=== PATIENT | male | born 1950 | race Caucasian/White ===

== ENCOUNTER 2016-11-16 20:43 | Inpatient (IN) | payer OTHER, MEDICARE ==
[~2016-11-16] VITALS: Ht 175.3 cm; Wt 106.5 kg
[2016-11-16 20:40] VITALS: O2SAT 95
[~2016-11-16 20:43] MED LIST: ALBU17I INH; ASPI81TA82 PO; ATOR80TA PO; BUSP10 PO; FENO54TA PO; HYDR-2768 PO; IBUP800 PO; LISI-360 PO; REME15TA PO; SPIRCAP INH; SYMB80AE INH; VITA100018 PO; ZOLO50TA PO
[2016-11-16 20:46] VITALS: TEMP 98.6
[2016-11-16 20:54] VITALS: BP 181/93; PULSE 110; RESP 22; O2SAT 99
[2016-11-16] MEDS ORDERED: MAGNESIUM SULFATE 1 GM PREMIX 100 ML IV ONE (21:00)
[2016-11-16] MEDS ORDERED: RESP: ALBUTEROL 2.5 MG/IPRATROPIUM 0.5 MG NEB (SCH) INH ONE (21:00)
--- NOTE | 2016-11-16 21:00 | PD ---
HPI Chief Complaint: Respiratory Distress Time Seen by Provider: 20:49 Travel History International Travel<30 days: No Contact w/Intl Traveler<30days: No Traveled to known affect area: No History of Present Illness HPI The patient is a 66 year old male who presents to the [facility] emergency department with a history of shortness of breath that began approximately one hour prior to ambulance services arrival while he was watching television. He reports it began suddenly. He reports that he does have a history of asthma and chronic bronchitis. He tried using his Proventil inhaler without relief. Upon ambulance services arrival the patient was noted to be tachypneic, tripoding, with conversational dyspnea and diaphoresis. The patient's O2 saturation on room air was in the low 80s. The patient was started on an albuterol nebulizer treatment and IV access was obtained. The patient was given Solu-Medrol 125 mg IV. 2 more albuterol nebulizer treatments were administered in route, however the patient continued to have a significant amount of work of breathing O2 saturations in the low 90s. The patient was then given 0.3 mg of subcutaneous epinephrine and quickly his symptoms began to improve. The patient on arrival is able to speak in complete sentences. The patient denies having any chest pain or chest pressure. He reports that he has had a worsening cough over the last few days. He reports that it seems to be productive, however he has difficulty getting the phlegm up. He reports that the phlegm when he does get it up is clear in color. He denies having any fevers. He denies having any lower extremity edema. The patient prior to arrival was noted to be hypertensive with a blood pressure 227/115. The patient reports that he has not been taking his blood pressure medications for the last 2 weeks. He is not exactly sure why he has not been taking his medication. He reports that his primary care physician is Dr. Thomas. The patient reports that he quit smoking over 25 years ago. On review of systems, the patient denies any neck pain, chest pain, abdominal pain, vomiting, diarrhea , urinary symptoms, or neurologic symptoms. [facility] Past Medical History Narrative Medical The patient's past medical history is significant for asthma, chronic bronchitis , COPD, prior history of tobacco use, history of PTSD, history of hypertension, arthritis, acid reflux, hyperlipidemia Arthritis: Yes Asthma: Yes Blood Disorders: No Heart Rhythm Problems: No Cancer: No Cardiovascular Problems: Yes Chemotherapy: Yes Chest Pain: No Congestive Heart Failure: No COPD: Yes Endocrine: No Gastrointestinal Disorders: Yes (GERD) GERD: Yes Genitourinary: No Hypertension: Yes Immune Disorder: No Implanted Vascular Access Dvce: No Musculoskeletal: Yes Neurologic: No Psychiatric: Yes (PTSD) Reproductive: No Respiratory: Yes Past Surgical History Narrative Surgical The patient's past surgical history is significant for an appendectomy, hernia repair, shrapnel removal. Abdominal Surgery: Yes (HERNIA AND SHRAPNEL) Appendectomy: Yes Other Surgery: Yes Social History Alcohol Use: No (OCC) Tobacco Use: No (QUIT 15 YRS AGO) Substance Use: No Allergies-Medications (Allergen,Severity, Reaction): Coded Allergies: Keflex (Verified Allergy, Severe, anaphylaxis, 11/16/16) Reported Meds & Prescriptions Reported Meds & Active Scripts Active Reported Aspirin 81 (Aspirin) 81 Mg Tabdr 81 Mg PO DAILY Atorvastatin (Atorvastatin Calcium) 80 Mg Tab 80 Mg PO HS Hydrochlorothiazide 25 Mg Tab 25 Mg PO DAILY Lisinopril 10 Mg Tab 10 Mg PO DAILY Ventolin Hfa 18 GM Inh (Albuterol Sulfate) 90 Mcg/Act Aer 2 Puff INH Q4H PRN Symbicort Inh (Budesonide/Formoterol Fumarate) 80-4.5 Mcg/Act Aero 2 Puff INH BID Spiriva Handihaler (Tiotropium Inh) 18 Mcg Cap 18 Mcg INH DAILY 1 capsule = 18 mcg Mucinex DM (Dextromethorphan-Guaifenesin) 30-600 Mg Tab 1 Tab PO BID PRN Review of Systems Except as stated in HPI: all other systems reviewed are Neg General / Constitutional: No: Fever Eyes: No: Visual changes HENT: Positive: Congestion, No: Headaches Cardiovascular: Positive: Dyspnea on exertion, No: Chest Pain or Discomfort Respiratory: Positive: Cough, Shortness of Breath, Wheezing Gastrointestinal: No: Nausea, Vomiting, Diarrhea, Abdominal Pain Genitourinary: No: Dysuria Musculoskeletal: No: Pain Skin: No Rash Neurologic: No: Weakness, Focal Abnormalities, Change in Mentation, Slurred Speech, Sensory Disturbance Psychiatric: No: Depression Endocrine: No: Polydipsia Hematologic/Lymphatic: No: Easy Bruising Physical Exam Narrative General: The patient is a well-developed well-nourished male in no acute distress on arrival. Head and Neck exam: Head is normocephalic atraumatic. Eyes: EOMI, pupils are equal round and reactive to light. Nose: Midline septum with pink mucous membranes Mouth: Dentition unremarkable. Moist mucus membranes. Posterior oropharynx is not erythematous. No tonsillar hypertrophy. Uvula midline. Airway patent. Neck: No palpable lymphadenopathy. No nuchal rigidity. No thyromegaly. Cardiovascular: Sinus tachycardia in the low 100s without murmurs, gallops, or rubs. No pulse deficit to the extremities and simultaneous auscultation and palpation of his radial artery. Lungs: Soft posterior expiratory wheezes are audible, good air movement is noted at this time, prolonged expiratory phase of breathing is noted. No tripoding, paroxysmal abdominal breathing, retractions, or conversational dyspnea is noted at this time. Abdomen: Soft and distended related to central obesity, nontender in all 4 quadrants of the abdomen. No guarding, rebound, or rigidity. Normal bowel sounds are audible. No tenderness on palpation of McBurney's point Extremities: No clubbing or cyanosis. The patient has trace pedal edema bilateral lower extremities. 2+ pulses in all 4 extremities. No calf tenderness on palpation. Negative Homans sign. Back: No costovertebral angle tenderness to palpation. Neurologic Exam: Grossly nonfocal. Skin Exam: No rash noted. Intact skin that is warm and dry. Data Data Last Documented VS Vital Signs Date Time Temp Pulse Resp B/P Pulse Ox O2 Delivery O2 Flow Rate FiO2 11/16/16 20:54 110 22 181/93 99 Simple Mask 12 11/16/16 20:46 98.6 Orders Complete Blood Count With Diff (11/16/16 20:50) Comprehensive Metabolic Panel (11/16/16 20:50) B-Type Natriuretic Peptide (11/16/16 20:50) Act Partial Throm Time (Ptt) (11/16/16 20:50) Prothrombin Time / Inr (Pt) (11/16/16 20:50) Magnesium (Mg) (11/16/16 20:50) Ckmb (Isoenzyme) Profile (11/16/16 20:50) Troponin I (11/16/16 20:50) Iv Access Insert/Monitor (11/16/16 20:50) Electrocardiogram (11/16/16 20:50) Ecg Monitoring (11/16/16 20:50) Oximetry (11/16/16 20:50) Oxygen Administration (11/16/16 20:50) Chest, Single Ap (11/16/16 20:50) Sodium Chloride 0.9% Flush (Ns Flush) (11/16/16 21:00) Albuterol-Ipratropium Neb (Duoneb Neb) (11/16/16 21:00) Magnesium Sulfate 1 Gm Premix (Magnesium (11/16/16 21:00) Blood Culture (11/16/16 21:35) Lactic Acid Sepsis Protocol (11/16/16 21:35) Aztreonam Inj (Azactam Inj) (11/16/16 21:37) Levofloxacin 750 Mg Premix Inj (Levaquin (11/16/16 21:37) CKMB (11/16/16 21:05) CKMB% (11/16/16 21:05) Sodium Chlor 0.9% 1000 Ml Inj (Ns 1000 M (11/16/16 23:15) Admit Order (Ed Use Only) (11/16/16 23:12) Labs Laboratory Tests Test 11/16/16 11/16/16 21:05 22:15 White Blood Count 17.9 TH/MM3 Red Blood Count 4.95 MIL/MM3 Hemoglobin 15.4 GM/DL Hematocrit 45.2 % Mean Corpuscular Volume 91.3 FL Mean Corpuscular Hemoglobin 31.1 PG Mean Corpuscular Hemoglobin 34.0 % Concent Red Cell Distribution Width 13.5 % Platelet Count 219 TH/MM3 Mean Platelet Volume 9.9 FL Neutrophils (%) (Auto) 85.0 % Lymphocytes (%) (Auto) 7.3 % Monocytes (%) (Auto) 7.6 % Eosinophils (%) (Auto) 0.0 % Basophils (%) (Auto) 0.1 % Neutrophils # (Auto) 15.3 TH/MM3 Lymphocytes # (Auto) 1.3 TH/MM3 Monocytes # (Auto) 1.4 TH/MM3 Eosinophils # (Auto) 0.0 TH/MM3 Basophils # (Auto) 0.0 TH/MM3 CBC Comment DIFF FINAL Differential Comment Prothrombin Time 10.7 SEC Prothromb Time International 1.0 RATIO Ratio Activated Partial 22.4 SEC Thromboplast Time Sodium Level 140 MEQ/L Potassium Level 3.7 MEQ/L Chloride Level 103 MEQ/L Carbon Dioxide Level 26.3 MEQ/L Anion Gap 11 MEQ/L Blood Urea Nitrogen 19 MG/DL Creatinine 1.09 MG/DL Estimat Glomerular Filtration 67 ML/MIN Rate Random Glucose 108 MG/DL Calcium Level 8.3 MG/DL Magnesium Level 2.4 MG/DL Total Bilirubin 0.6 MG/DL Aspartate Amino Transf 49 U/L (AST/SGOT) Alanine Aminotransferase 52 U/L (ALT/SGPT) Alkaline Phosphatase 103 U/L Total Creatine Kinase 115 U/L Creatine Kinase MB 3.0 NG/ML Troponin I 0.04 NG/ML B-Type Natriuretic Peptide 68 PG/ML Total Protein 7.0 GM/DL Albumin 3.8 GM/DL Lactic Acid Level 3.5 mmol/L [facility] Medical Decision Making Medical Screen Exam Complete: Yes Emergency Medical Condition: Yes Medical Record Reviewed: Yes Interpretation(s) Last Impressions Chest X-Ray 11/16/162049 Signed Impressions: Service Date/Time: Wednesday, November 16, 2016 21:01 - CONCLUSION: No evidence of acute cardiopulmonary disease. Louis Willson MD Differential Diagnosis COPD exacerbation, versus new-onset congestive heart failure, versus acute coronary syndrome, versus asthma exacerbation related to an allergic reaction. Narrative Course During the course of the patients emergency department visit, the patients history, examination, and differential diagnosis were reviewed with the patient. The patient had IV access obtained and blood work sent for analysis. The patient was placed on a line erector apprentice with oximetry and blood pressure monitoring. An EKG was done on arrival. The patient's EKG shows a sinus tachycardia rate of 110, no acute ST segment elevation or depression, T waves are inverted in V1. QRS duration is 84 ms, QTC 387 ms. Patient's O2 saturation on arrival is noted to be 97%. A chest x-ray was ordered. The patient was initially provided a DuoNeb 1, magnesium 1 g IV. The patients laboratory studies were reviewed and remarkable for a white count of 17.9, hemoglobin 15.4, platelets 219 with neutrophils 85, lymphocytes 7.3 , CMP is remarkable for a BUN of 19, glucose 108, calcium 8.3, AST 49, cardiac enzymes within normal limits, BNP is 68, lactic acid 3.5, PT/PTT unremarkable. The patient meets SIRS criteria and technically sepsis criteria due to an infection source of bronchitis/pulmonary infection source, however I suspect that the patient is not truly septic and his lactic acid elevation is related to hypoxia and increased work of breathing. The patient was given normal saline a 1 L IV fluid bolus, antibiotic coverage for a pulmonary source. The patient's Q sofa score is 1. Radiology studies were reviewed and remarkable for a chest x-ray shows no evidence of infiltrate, no acute cardiopulmonary disease. While awaiting a bed, the patient became short of breath again. A repeat examination the patient has no significant wheezing noted. The patient also became dyspneic when he sat up at the bedside to urinate in the urinal. The patient was given a single DuoNeb. The patient will also undergo CTA to rule out PE. CTA was negative for PE. The patients results were discussed with the patient, including the plan of care. I explained that further testing and/ or monitoring is indicated based on the patients history, examination, and/ or laboratory findings. Therefore, I recommended admission for additional evaluation. The patient expressed understanding and was agreeable with this plan. The patient was admitted to the hospital in stable condition and sent to a bed under the care of the [facility] hospitalist service per Sepsis Criteria SIRS Criteria (2 or more): Heart rate over 90, RR > 20 or PaCO2 < 32, WBC > 90532, < 4000 or > 10% bands Sepsis Criteria (SIRS+source): Infect source susp/known Criteria Outcome: Meets SIRS criteria Physician Communication Physician Communication The patient's case was discussed with Dr. Monae who did agree to admit the patient for further evaluation and treatment at this time. Diagnosis Primary Impression: COPD exacerbation Additional Impression: Hypoxemia Admitting Information Admitting Physician Requests: it Kelly Blank MD November 16, 2016 20:59
[2016-11-16] MEDS ORDERED: ATOR1TAB18 PO (21:03)
[2016-11-16] MEDS ORDERED: SPIRCAP INH (21:03)
[2016-11-16] MEDS ORDERED: SYMB80AE INH (21:03)
[2016-11-16] MEDS ORDERED: ASPI-110 PO (21:03)
[2016-11-16] MEDS ORDERED: LISI10TA3 PO (21:03)
[2016-11-16] MEDS ORDERED: VENTAER INH (21:03)
[2016-11-16] MEDS ORDERED: MUCI30TA2 PO (21:03)
[2016-11-16] MEDS ORDERED: HYDR25TA5 PO (21:03)
[2016-11-16] MEDS: SODIUM CHLORIDE 0.9% FLUSH 10 ML FLUSH IVF PRN ×2 (21:13→23:18)
[2016-11-16 21:33] LABS: AUTOMATED NEUTROPHIL # 15.3 TH/MM3 (1.8-7.7); BASOPHIL % 0.1 % (0.0-2.0); HEMATOCRIT 45.2 % (39.0-51.0); HEMO FLAGS DIFF FINAL; LYMPH % 7.3 % (9.0-44.0); LYMPHOCYTE # 1.3 TH/MM3 (1.0-4.8); MEAN CELL VOLUME 91.3 FL (80.0-100.0); MEAN CORPUSCULAR HEMOGLOBIN 31.1 PG (27.0-34.0); MONO % 7.6 % (0.0-8.0); PLATELET COUNT 219 TH/MM3 (150-450); RED BLOOD COUNT 4.95 MIL/MM3 (4.50-5.90); RED CELL DISTRIBUTION WIDTH 13.5 % (11.6-17.2); WHITE BLOOD COUNT 17.9 TH/MM3 (4.0-11.0)
--- NOTE | 2016-11-16 21:34 | RADRPT ---
EXAM DATE/TIME: 11/16/2016 21:01 [place] COMPARISON: CHEST PA & LAT, January 15, 2014, 18:13. INDICATIONS : Short of breath MEDICAL HISTORY : Chronic obstructive pulmonary disease. SURGICAL HISTORY : None. ENCOUNTER: Initial ACUITY: 1 day PAIN SCORE: 0/10 LOCATION: Bilateral chest FINDINGS: A single view of the chest demonstrates the lungs to be symmetrically aerated without evidence of mas s, infiltrate or effusion. The cardiomediastinal contours are unremarkable. Osseous structures are intact. CONCLUSION: No evidence of acute cardiopulmonary disease. Louis Willson MD on November 16, 2016 at 21:32 Board Certified Radiologist. This report was verified electronically.
[2016-11-16] MEDS ORDERED: LEVOFLOXACIN 750 MG PREMIX INJ 150 ML IV STA (21:37)
[2016-11-16] MEDS ORDERED: AZTREONAM INJ 2,000 MG in SODIUM CHLORIDE 0.9% INJ 100 ML IV STA (21:37)
[2016-11-16 21:42] LABS: APTT (PATIENT) 22.4 SEC (24.3-30.1); PROTHROMBIN TIME - PATIENT 10.7 SEC (9.8-11.6)
[2016-11-16 21:53] LABS: ALKALINE PHOSPHATASE 103 U/L (45-117); ALT (GPT) 52 U/L (12-78); ANION GAP 11 MEQ/L (5-15); AST (GOT) 49 U/L (15-37); BICARBONATE 26.3 MEQ/L (21.0-32.0); BLOOD UREA NITROGEN 19 MG/DL (7-18); CHLORIDE 103 MEQ/L (98-107); CREATINE KINASE 115 U/L (39-308); GLOMERULAR FILTRATION RATE 67 ML/MIN (>89); MAGNESIUM 2.4 MG/DL (1.5-2.5); POTASSIUM 3.7 MEQ/L (3.5-5.1); SODIUM (NA) 140 MEQ/L (136-145); TOTAL BILIRUBIN ADULT 0.6 MG/DL (0.2-1.0)
[2016-11-16] MEDS ORDERED: SODIUM CHLOR 0.9% 1000 ML INJ 1,000 ML IV ONE (23:15)
[2016-11-17] VITALS (14 sets, daily range): BP systolic 146–203; BP diastolic 70–101; PULSE 82–120; RESP 18–20; TEMP 97.5–98.4; O2SAT 95–98
[2016-11-17] MEDS ORDERED: NALOXONE HCL 0.4 MG/ML AMP IV PRN
[2016-11-17] MEDS ORDERED: SODIUM CHLORIDE 0.9% FLUSH 10 ML FLUSH IV FLUSH PRN
[2016-11-17] MEDS: methylPREDNISolone SOD SUCC 40 MG/1 ML VIAL IV PUSH SCH ×5 (00:02→23:51)
[2016-11-17] MEDS ORDERED: ENALAPRILAT 1.25 MG/ML VIAL IV PUSH ONE (00:30)
[2016-11-17 00:38] LABS: LACTIC ACID GHOST NOT REPORTABLE
--- NOTE | 2016-11-17 01:17 | HHI.HP ---
[facility] Service [facility] Primary Care Physician Anthony Thomas MD Admission Diagnosis Copd Exacerbation, bronchitis, hypoxemia on RA Diagnoses: (1) COPD exacerbation (2) SIRS (systemic inflammatory response syndrome) (3) Gastroesophageal reflux disease (4) Hypertensive urgency Chief Complaint: Difficulty breathing Travel History International Travel<30 Days: No Contact w/Intl Traveler <30 Da: No Traveled to Known Affected Are: No History of Present Illness Mr. Barton is a 66-year-old male with a history of asthma, chronic bronchitis , PTSD, GERD, hypertension, and arthritis who presented to the emergency room on 11/16/2016 complaining of sudden onset of shortness of breath. Oxygen saturation was noted in the low 80s upon EMS arrival at the patients home. He was given Solu-Medrol and multiple albuterol nebulizer treatments with breathing did not improve until he was given subcutaneous epinephrine 0.3 mg. Blood pressure was found elevated upon arrival in the ED at 181/93 and apparently the patient has not been taking his blood pressure medications for 2 weeks. The patient is seen in the emergency room. He states that he is been being treated by his primary care physician for bronchitis with antibiotics and steroids for a productive cough with clear sputum that has been present for duration of 1 week . He states that he was watching his television with his 2 dogs when he felt like he could not breathe. His symptoms were severe and onset was quite sudden. He had never experienced anything like this before. He denies fever, nausea, vomiting, diarrhea, black or red stools, burning or pain with urination, or syncope. He denies diabetes, CAD, CVA, seizures, thyroid, CA, prostate problems, blood clots in legs or lungs. He states he hasn't been taking antihypertensive medications - reports that he forgets to take them. . Review of Systems Except as stated in HPI: all other systems reviewed are Neg Past Family Social History Past Medical History COPD: asthma and chronic bronchitis Multiple rib fractures from a fall from a ladder in 2013 PTSD GERD Hypertension Arthritis . Past Surgical History Abdominal surgery for shrapnel and hernia Arthroscopic surgery bilateral knees Appendectomy . Reported Medications Reported Meds & Active Scripts Active Reported Aspirin 81 (Aspirin) 81 Mg Tabdr 81 Mg PO DAILY Atorvastatin (Atorvastatin Calcium) 80 Mg Tab 80 Mg PO HS Hydrochlorothiazide 25 Mg Tab 25 Mg PO DAILY Lisinopril 10 Mg Tab 10 Mg PO DAILY Ventolin Hfa 18 GM Inh (Albuterol Sulfate) 90 Mcg/Act Aer 2 Puff INH Q4H PRN Symbicort Inh (Budesonide/Formoterol Fumarate) 80-4.5 Mcg/Act Aero 2 Puff INH BID Spiriva Handihaler (Tiotropium Inh) 18 Mcg Cap 18 Mcg INH DAILY 1 capsule = 18 mcg Mucinex DM (Dextromethorphan-Guaifenesin) 30-600 Mg Tab 1 Tab PO BID PRN . Allergies: Coded Allergies: Keflex (Verified Allergy, Severe, anaphylaxis, 11/16/16) Active Ordered Medications Current Medications Sodium Chloride (NS Flush) 2 ml UNSCH PRN IVF FLUSH AFTER USING IV ACCESS Last administered on 11/16/16 23:18; Start 11/16/16 at 21:00; Stop 11/16/16 at 23:50; Status DC Albuterol/ Ipratropium 1 ampule 1 ampule ONCE ONCE INH Last administered on 20:56; Start 11/16/16 at 21:00; Stop 11/16/16 at 21:01; Status DC Magnesium Sulfate/ Dextrose 100 ml @ 100 mls/hr ONCE ONCE IV Last administered on 11/16/16 21:13; Start 11/16/16 at 21:00; Stop 11/16/16 at 21:59; Status DC Aztreonam 2000 mg/ Sodium Chloride 100 ml @ 200 mls/hr ONCE STAT IV Last administered on 11/16/16 23:04; Start 11/16/16 at 21:37; Stop 11/16/16 at 22:06; Status DC Levofloxacin/ Dextrose 150 ml @ 100 mls/hr ONCE STAT IV Last administered on 11/16/16 22:26; Start 11/16/16 at 21:37; Stop 11/16/16 at 23:06; Status DC Sodium Chloride (NS 1000 ml Inj) 1,000 ml @ 1,000 mls/hr Q1H ONCE IV Last administered on 11/16/16 23:18; Start 11/16/16 at 23:15; Stop 11/17/16 at 00:14; Status DC Sodium Chloride (NS Flush) 2 ml UNSCH PRN IV FLUSH FLUSH AFTER USING IV ACCESS ; Start 11/17/16 at 00:00 Sodium Chloride (NS Flush) 2 ml BID IV FLUSH ; Start 11/17/16 at 09:00 Naloxone HCl (Narcan Inj) 0.4 mg UNSCH PRN IV SEE LABEL COMMENTS; Start at 00:00 Methylprednisolone Sodium Succinate (SoluMEDROL INJ) 40 mg Q6HR IV PUSH Last administered on 11/17/16 00:02; Start 11/17/16 at 00:00 Albuterol/ Ipratropium (Duoneb Neb) 1 ampule Q6HR NEB NEB ; Start 11/17/16 at 04 :00 Albuterol/ Ipratropium (Duoneb Neb) 1 ampule Q2HR NEB PRN NEB wheezing; Start 11/17/16 at 00:00 Pantoprazole Sodium (Protonix) 40 mg DAILY PO ; Start 11/17/16 at 09:00 Enalaprilat (Vasotec Inj) 1.25 mg ONCE ONCE IV PUSH Last administered on 00:53; Start 11/17/16 at 00:30; Stop 11/17/16 at 00:31; Status DC . Family History Mother from pneumonia after hip fracture Father cirrhosis Sister (one of them) from asthma Brother and sister from emphysema - smoked heavily . Social History Tobacco: smoker; quit over 20 years ago Alcohol: denies Illicit Drugs: denies . Physical Exam Vital Signs Vital Signs Date Time Temp Pulse Resp B/P Pulse Ox O2 Delivery O2 Flow Rate FiO2 11/17/16 00:53 88 18 174/77 97 Nasal Cannula 2 11/16/16 20:54 110 22 181/93 99 Simple Mask 12 11/16/16 20:53 99 Simple Mask 12 11/16/16 20:46 98.6 11/16/16 20:40 95 Nasal Cannula 3.00 Physical Exam GENERAL: This is an anxious appearing patient, in no apparent distress. Tremulous. SKIN: No rashes, ecchymoses or lesions. Cool and dry. HEAD: Atraumatic. Normocephalic. EYES: No scleral icterus. No injection or drainage. ENT: Nose without bleeding, purulent drainage. NECK: Trachea midline. No JVD or lymphadenopathy. CARDIOVASCULAR: Regular rate and rhythm without murmurs, gallops, or rubs. RESPIRATORY: Clear to auscultation. Breath sounds equal bilaterally. No wheezes , rales, or rhonchi. GASTROINTESTINAL: Abdomen soft, non-tender, nondistended. No guarding. MUSCULOSKELETAL: Extremities without clubbing, cyanosis, or edema. No calf tenderness. NEUROLOGICAL: Awake and alert. Motor and sensory grossly within normal limits. Normal speech. . Laboratory Laboratory Tests Test 11/16/16 11/16/16 21:05 22:15 White Blood Count 17.9 Red Blood Count 4.95 Hemoglobin 15.4 Hematocrit 45.2 Mean Corpuscular Volume 91.3 Mean Corpuscular Hemoglobin 31.1 Mean Corpuscular Hemoglobin 34.0 Concent Red Cell Distribution Width 13.5 Platelet Count 219 Mean Platelet Volume 9.9 Neutrophils (%) (Auto) 85.0 Lymphocytes (%) (Auto) 7.3 Monocytes (%) (Auto) 7.6 Eosinophils (%) (Auto) 0.0 Basophils (%) (Auto) 0.1 Neutrophils # (Auto) 15.3 Lymphocytes # (Auto) 1.3 Monocytes # (Auto) 1.4 Eosinophils # (Auto) 0.0 Basophils # (Auto) 0.0 CBC Comment DIFF FINAL Differential Comment Prothrombin Time 10.7 Prothromb Time International 1.0 Ratio Activated Partial 22.4 Thromboplast Time Sodium Level 140 Potassium Level 3.7 Chloride Level 103 Carbon Dioxide Level 26.3 Anion Gap 11 Blood Urea Nitrogen 19 Creatinine 1.09 Estimat Glomerular Filtration 67 Rate Random Glucose 108 Calcium Level 8.3 Magnesium Level 2.4 Total Bilirubin 0.6 Aspartate Amino Transf 49 (AST/SGOT) Alanine Aminotransferase 52 (ALT/SGPT) Alkaline Phosphatase 103 Total Creatine Kinase 115 Creatine Kinase MB 3.0 Troponin I 0.04 B-Type Natriuretic Peptide 68 Total Protein 7.0 Albumin 3.8 Lactic Acid Level 3.5 Date/Time Procedure Status Source Growth 11/16/16 22:35 Aerobic Blood Culture Received Blood Peripheral Pending 11/16/16 22:35 Anaerobic Blood Culture Received Blood Peripheral Pending Result Diagram: 11/16/16210411/16/162104 Imaging Last Impressions Chest X-Ray 11/16/162049 Signed Impressions: Service Date/Time: Wednesday, November 16, 2016 21:01 - CONCLUSION: No evidence of acute cardiopulmonary disease. Louis Willson MD . Assessment and Plan Problem List: (1) SIRS (systemic inflammatory response syndrome) ICD Code: R65.10 Status: Acute (2) COPD exacerbation ICD Code: J44.1 Status: Acute (3) Gastroesophageal reflux disease ICD Code: K21.9 Status: Chronic (4) Hypertensive urgency ICD Code: I16.0 Status: Acute Assessment and Plan Mr. Barton is a 66-year-old male with a history of asthma and chronic bronchitis who presented to the emergency room on 11/16/2016 complaining of sudden onset of shortness of breath. He also was noted to have hypertensive urgency in the emergency room and to be noncompliant with home antihypertensive medications. SIRS - failed outpatient treatment for bronchitis - WBC 17.9 with neutrophilia - Lactic acid 3.5 - recheck was 4.0 - will place on lactic acid sepsis protocol - Afebrile; tachycardic with heart rate 110 - Chest x-ray with no evidence of acute cardiopulmonary disease - Await results of blood cultures - Given IV Aztreonam and Levaquin in ER - Will give another NS bolus - 1 liter - Levaquin 750 mg IV q24h - will treat for presumed pneumonia with suspected lag in CXR COPD exacerbation - Supplemental oxygen titrated to maintain oxygen saturation greater than 92% - Solu-Medrol 40 mg IV every 6 hours - Duo nebulizers every 2 hours as needed for wheezing - CT pulmonary angiogram to rule out pulmonary embolism Hypertensive urgency - Hydralazine 10 mg IV every 30 minutes for blood pressure greater than 170/90 - We'll give Ativan 0.5 mg by mouth times one dose as patient appears anxious at the time of visit - Monitor trends in blood pressure and adjust medications accordingly Gastroesophageal reflux disease - Protonix 40 mg by mouth daily DVT prophylaxis - Lovenox 40 mg subq q24h Written by Ashley Mendoza, acting as scribe for Dr. Monae on 11/17/16 at 01:17. .This note was transcribed by scribe [ Ashley Mendoza,]. I, Dr. Chester Monae personally performed the history, physical exam, and medical decision making; and confirmed the accuracy of the information in the transcribed note. Authenticated by Dr. Chester Monae on 11/17/16 at 01:17. Discussed Condition With ER physician and patient . Physician Certification 2 Midnight Certification Type: Admission for Inpatient Services Order for Inpatient Services The services are ordered in accordance with Medicare regulations or non- Medicare payer requirements, as applicable. In the case of services not specified as inpatient-only, they are appropriately provided as inpatient services in accordance with the 2-midnight benchmark. Estimated LOS (days): 3 days is the estimated time the patient will need to remain in the hospital, assuming treatment plan goals are met and no additional complications. Post-Hospital Plan: Not yet determined Ashley Mendoza November 17, 2016 01:17 Chester Monae MD November 17, 2016 05:09
[2016-11-17] MEDS: hydrALAZINE HCL 20 MG/ML VIAL IV PUSH PRN ×5 (01:25→21:39)
[2016-11-17] MEDS ORDERED: LORazepam 0.5 MG TAB PO ONE (01:30)
[2016-11-17] MEDS: RESP: ALBUTEROL 2.5 MG/IPRATROPIUM 0.5 MG NEB (PRN) NEB ×2 (01:49→02:15)
[2016-11-17] MEDS ORDERED: SODIUM CHLOR 0.9% 1000 ML INJ 1,000 ML IV ONE ×2 (02:30→05:15)
[2016-11-17] MEDS ORDERED: IOHEXOL 350 MG/ML 10 ML VIAL (for RAD DIAG) IV ONE (02:39)
--- NOTE | 2016-11-17 02:56 | RADRPT ---
EXAM DATE/TIME: 11/17/2016 02:37 [place] COMPARISON: No previous studies available for comparison. INDICATIONS : Short of breath. IV CONTRAST: 74 cc Omnipaque 350 (iohexol) IV RADIATION DOSE: 23.38 CTDIvol (mGy) MEDICAL HISTORY : Chronic obstructive pulmonary disease. Gastroesophageal reflux disease. Hypertension.Rib fractures. SURGICAL HISTORY : Appendectomy. Hernia repair. ENCOUNTER: Initial ACUITY: 1 day PAIN SCALE: 0/10 LOCATION: Bilateral chest TECHNIQUE: Volumetric scanning of the chest was performed using a pulmonary embolism protocol MIP images were re constructed. Using automated exposure control and adjustment of the mA and/or kV according to patien t size, radiation dose was kept as low as reasonably achievable to obtain optimal diagnostic quality images. FINDINGS: Examination of the pulmonary vasculature demonstrates good filling of the main, lobar and segmental b ranches. There are no filling defects to suggest pulmonary embolism. Multiplanar reconstructions are also unremarkable. There is subsegmental atelectasis in the right base. Examination of the mediastinum demonstrates no a bnormally enlarged lymph nodes by CT criteria. No axillary or hilar abnormalities are identified. Cor onary artery calcifications are present. The visualized upper abdomen demonstrates no abnormality. CONCLUSION: 1. No evidence of pulmonary embolism. Humble Conte MD on November 17, 2016 at 2:52 Board Certified Radiologist. This report was verified electronically.
[2016-11-17] MEDS: RESP: ALBUTEROL 2.5 MG/IPRATROPIUM 0.5 MG NEB (SCH) NEB ×4 (03:29→21:18)
[2016-11-17 04:54] LABS: LACTIC ACID GHOST NOT REPORTABLE
[2016-11-17] MEDS: ENOXAPARIN SODIUM 40 MG/0.4 ML SYRINGE SQ SCH (05:27)
[2016-11-17 05:37] LABS: AUTOMATED NEUTROPHIL # 17.5 TH/MM3 (1.8-7.7); BASOPHIL % 0.2 % (0.0-2.0); HEMATOCRIT 43.7 % (39.0-51.0); LYMPH % 4.1 % (9.0-44.0); LYMPHOCYTE # 0.8 TH/MM3 (1.0-4.8); MEAN CELL VOLUME 91.2 FL (80.0-100.0); MEAN CORPUSCULAR HEMOGLOBIN 31.2 PG (27.0-34.0); MEAN CORPUSCULAR HGB CONC 34.3 % (32.0-36.0); MONO % 2.2 % (0.0-8.0); NEUT % 93.5 % (16.0-70.0); PLATELET COUNT 237 TH/MM3 (150-450); RED CELL DISTRIBUTION WIDTH 13.6 % (11.6-17.2); WHITE BLOOD COUNT 18.8 TH/MM3 (4.0-11.0)
[2016-11-17 05:48] LABS: HEMO FLAGS AUTO DIFF
[2016-11-17 06:04] LABS: BICARBONATE 18.6 MEQ/L (21.0-32.0); POTASSIUM 3.6 MEQ/L (3.5-5.1)
[2016-11-17 07:11] LABS: SCAN/DIFF AUTO DIFF CONFIRMED
[2016-11-17 07:38] LABS: BLOOD GAS BASE EXCESS -3.9 mmol/L (-2-2); BLOOD GAS CARBOXYHEMOGLOBIN 0.9 % (0-4); BLOOD GAS HCO3 20 mmol/L (22-26); BLOOD GAS METHEMOGLOBIN 0.9 % (0-2); BLOOD GAS O2 HGB SATURATION 96 % (90-100); BLOOD GAS OXYGEN CONTENT 19.6 Vol % (12.0-20.0); BLOOD GAS PCO2 33 mmHg (38-42); BLOOD GAS PO2 93 mmHg (61-120); BLOOD GAS TOTAL HGB 14.6 G/DL (12.0-16.0); CRITICAL VALUE NO; DRAW SITE LT RADIAL; LITER FLOW 4 L/M; OXYGEN DEVICE NASAL CANNULA; TEMP CORR TO 98.6
[2016-11-17 07:39] LABS: NUMBER OF ARTERIAL PUNCTURES 1; STAT YES; ULNAR PULSE PRESENT
--- NOTE | 2016-11-17 08:04 | PD.CONS ---
[facility] Service Critical Care Medicine Consult Requested By Dr. Monae Reason for Consult Lactic acidosis Primary Care Physician Anthony Thomas MD History of Present Illness This is a 66yM with history of COPD, asthma, chronic bronchitis who is well- controlled on inhaled corticosteroid who had acute onset of shortness of breath last night and called 911 where EMS found him to be hypoxic with spo2 in the 80s. He was given steroids, nebs, and epinephrine 0.3mg SQ with improvement in his wheezing and respiratory distress. In the emergency department, he had a second episode of distress which again resolved with nebulizer treatments. He states he has never had a COPD exacerbation or any shortness of breath this bad. CT pulmonary angiogram was done to rule out emboli as a cause for his hypoxia and was negative for PE. He did have a lactic acidosis and a leukocytosis on presentation and was given 2 L NS bolus. He was admitted to the hospitalist service for acute bronchitis and concern for sepsis with elevated wbc, lactic acidosis, tachypnea. Overnight, his lactate trended up from 3.5 --> 4 --> 7.2 --> 7.8 despite ivf resuscitation. His BNP on admission was 68 and recheck is 99. ABG demonstrates mild compensated metabolic acidosis 7.4/33/93. Dr. Monae called me and requested that I evaluate the patient for possible worsening shock vs. ischemia given his rising lactate. When I evaluated the patient, he is sitting up in bed, alert, oriented, and pleasant. He again confirms the histories documented in the ER and by the hospitalist service. He denies any abdominal pain. denies diarrhea, bloody stools, dark tarry stools, nausea, vomiting. He denies back pain. He states he can walk up 2 flights of stairs without getting winded. He denies dyspnea on exertion, denies PND, orthopnea. He sleeps flat on his side without any problems. He does state that he turned his air conditioning off and thinks the heat and humidity in his home may have caused his breathing problems. Denies any swelling of his legs or feet. States that other than this, he has been in his usual state of health. denies chest pain or palpitations. Of note, the CT pulmonary angiogram did have enough arterial contrast load and scanned low enough to visualize the celiac and SMA take-off from the aorta, and both are widely patent and fill as far distally as is observed on the CT. Review of Systems Constitutional: DENIES: Diaphoretic episodes, Fatigue, Fever, Chills, Night Sweats Respiratory: COMPLAINS OF: Cough, Wheezing, Sputum production, Shortness of breath, DENIES: Apneas, Hemoptysis Cardiovascular: DENIES: Chest pain, Palpitations, Syncope, Dyspnea on Exertion , PND, Lower Extremity Edema, Orthopnea Gastrointestinal: DENIES: Abdominal pain, Black stools, Bloody stools, Constipation, Diarrhea, Nausea, Vomiting Past Family Social History Allergies: Coded Allergies: Keflex (Verified Allergy, Severe, anaphylaxis, 11/16/16) Past Medical History COPD: asthma and chronic bronchitis Multiple rib fractures from a fall from a ladder in 2013 PTSD GERD Hypertension Arthritis . Past Surgical History Abdominal surgery for shrapnel and hernia Arthroscopic surgery bilateral knees Appendectomy Reported Medications Aspirin 81 (Aspirin) 81 Mg Tabdr 81 Mg PO DAILY Atorvastatin (Atorvastatin Calcium) 80 Mg Tab 80 Mg PO HS Hydrochlorothiazide 25 Mg Tab 25 Mg PO DAILY Lisinopril 10 Mg Tab 10 Mg PO DAILY Ventolin Hfa 18 GM Inh (Albuterol Sulfate) 90 Mcg/Act Aer 2 Puff INH Q4H PRN Symbicort Inh (Budesonide/Formoterol Fumarate) 80-4.5 Mcg/Act Aero 2 Puff INH BID Spiriva Handihaler (Tiotropium Inh) 18 Mcg Cap 18 Mcg INH DAILY 1 capsule = 18 mcg Mucinex DM (Dextromethorphan-Guaifenesin) 30-600 Mg Tab 1 Tab PO BID PRN Active Ordered Medications See MAR Family History Mother from pneumonia after hip fracture Father cirrhosis Sister (one of them) from asthma Brother and sister from emphysema - smoked heavily Social History Tobacco: smoker; quit over 20 years ago Alcohol: denies Illicit Drugs: denies . Physical Exam Vital Signs Vital Signs Date Time Temp Pulse Resp B/P Pulse Ox O2 Delivery O2 Flow Rate FiO2 11/17/16 06:21 101 20 166/90 96 11/17/16 04:00 98.4 113 20 182/83 97 11/17/16 03:31 97 Nasal Cannula 4.00 11/17/16 02:51 120 20 181/81 98 Nasal Cannula 4 11/17/16 01:32 100 20 203/101 98 Nasal Cannula 3 11/17/16 00:53 88 18 174/77 97 Nasal Cannula 2 11/16/16 20:54 110 22 181/93 99 Simple Mask 12 11/16/16 20:53 99 Simple Mask 12 11/16/16 20:46 98.6 11/16/16 20:40 95 Nasal Cannula 3.00 Physical Exam On my examination, patient is alert and oriented, lying in bed, middle-aged appearing, in no acute distress. conversant and pleasant. he has no obvious cyanosis of the lips or oropharynx. his mucous membranes are moist. he is on 2L o2 by [place]. he is unlabored with equal chest rise. he has 2+ distal pulses. he has no peripheral edema. his extremities are warm and well-perfused with good capillary refill his abdomen is obese, soft, nontender, nondistended. no guarding or rebound. he has no gross focal motor or sensory deficits. Laboratory Laboratory Tests Test 11/16/16 11/16/16 11/17/16 11/17/16 21:05 22:15 01:05 02:52 White Blood Count 17.9 Red Blood Count 4.95 Hemoglobin 15.4 Hematocrit 45.2 Mean Corpuscular Volume 91.3 Mean Corpuscular Hemoglobin 31.1 Mean Corpuscular Hemoglobin 34.0 Concent Red Cell Distribution Width 13.5 Platelet Count 219 Mean Platelet Volume 9.9 Neutrophils (%) (Auto) 85.0 Lymphocytes (%) (Auto) 7.3 Monocytes (%) (Auto) 7.6 Eosinophils (%) (Auto) 0.0 Basophils (%) (Auto) 0.1 Neutrophils # (Auto) 15.3 Lymphocytes # (Auto) 1.3 Monocytes # (Auto) 1.4 Eosinophils # (Auto) 0.0 Basophils # (Auto) 0.0 CBC Comment DIFF FINAL Differential Comment Prothrombin Time 10.7 Prothromb Time International 1.0 Ratio Activated Partial 22.4 Thromboplast Time Sodium Level 140 Potassium Level 3.7 Chloride Level 103 Carbon Dioxide Level 26.3 Anion Gap 11 Blood Urea Nitrogen 19 Creatinine 1.09 Estimat Glomerular Filtration 67 Rate Random Glucose 108 Calcium Level 8.3 Magnesium Level 2.4 Total Bilirubin 0.6 Aspartate Amino Transf 49 (AST/SGOT) Alanine Aminotransferase 52 (ALT/SGPT) Alkaline Phosphatase 103 Total Creatine Kinase 115 Creatine Kinase MB 3.0 Troponin I 0.04 B-Type Natriuretic Peptide 68 Total Protein 7.0 Albumin 3.8 Lactic Acid Level 3.5 4.0 7.2 Test 11/17/16 11/17/16 05:30 07:30 White Blood Count 18.8 Red Blood Count 4.80 Hemoglobin 15.0 Hematocrit 43.7 Mean Corpuscular Volume 91.2 Mean Corpuscular Hemoglobin 31.2 Mean Corpuscular Hemoglobin 34.3 Concent Red Cell Distribution Width 13.6 Platelet Count 237 Mean Platelet Volume 9.3 Neutrophils (%) (Auto) 93.5 Lymphocytes (%) (Auto) 4.1 Monocytes (%) (Auto) 2.2 Eosinophils (%) (Auto) 0.0 Basophils (%) (Auto) 0.2 Neutrophils # (Auto) 17.5 Lymphocytes # (Auto) 0.8 Monocytes # (Auto) 0.4 Eosinophils # (Auto) 0.0 Basophils # (Auto) 0.0 CBC Comment AUTO DIFF Differential Comment AUTO DIFF CONFIRMED Sodium Level 138 Potassium Level 3.6 Chloride Level 104 Carbon Dioxide Level 18.6 Anion Gap 15 Blood Urea Nitrogen 16 Creatinine 1.27 Estimat Glomerular Filtration 56 Rate Random Glucose 173 Lactic Acid Level 7.8 Calcium Level 7.9 B-Type Natriuretic Peptide 99 Blood Gas Puncture Site LT RADIAL Blood Gas Patient Temperature 98.6 Blood Gas HCO3 20 Blood Gas Base Excess -3.9 Blood Gas Oxygen Saturation 96 Arterial Blood pH 7.40 Arterial Blood Partial 33 Pressure CO2 Arterial Blood Partial 93 Pressure O2 Arterial Blood Oxygen Content 19.6 Arterial Blood 0.9 Carboxyhemoglobin Arterial Blood Methemoglobin 0.9 Blood Gas Hemoglobin 14.6 Oxygen Delivery Device NASAL CANNULA Blood Gas Liter Flow 4 Date/Time Procedure Status Source Growth 11/16/16 22:35 Aerobic Blood Culture Received Blood Peripheral Pending 11/16/16 22:35 Anaerobic Blood Culture Received Blood Peripheral Pending Result Diagram: 11/17/16 0530 11/17/[address] Angiography 11/17/16220 Signed Impressions: Service Date/Time: Thursday, November 17, 2016 02:37 - CONCLUSION: 1. No evidence of pulmonary embolism. Humble Conte MD Chest X-Ray 11/16/162049 Signed Impressions: Service Date/Time: Wednesday, November 16, 2016 21:01 - CONCLUSION: No evidence of acute cardiopulmonary disease. Louis E. Agles, MD Assessment and Plan Assessment and Plan Assessment: 66yM with history of COPD with acute shortness of breath and likely COPD exacerbation. His course has been complicated by rising lactate levels of unknown significance. Given that he only has a mild compensated metabolic acidosis, this is almost certainly a Type B lactic acidosis and not associated with primary ischemia or poor oxygen delivery. He did receive epinephrine SQ in the field, which can cause a type B lactic acidosis. The half-life of SQ epi is short, and unlikely to last this duration, but could contribute. I also agree that this may be wash-out from his hypoxic event. His CT pulmonary angiogram is reassuring that there is no large filling defect in his celiac or SMA, and given that he has no abdominal pain or diarrhea, mesenteric ischemia would be almost completely ruled out by these findings. His BNP remains low, so cardiogenic shock and heart failure is unlikely as well. I agree with the plan to continue trending lactate to ensure it is clearing. His LFTs are normal , so poor clearance is also unlikely. From a pulmonary standpoint, would recommend checking urine legionella and mycoplasma as these could cause his COPD symptoms and are associated with a higher acuity of patient presentation. Recommendations: 1. Type B Lactic Acidosis -- trend lactates q6h until downtrending. -- as long as patient continues to clinically improve without further symptomatology, unlikely to be clinically significant to his hospital course. I would recommend continuing his current regimen of care and not change this care based on his lactate levels unless he has a clinical change. -- agree with routine 2d echocardiogram to rule out cardiogenic cause. 2. COPD exacerbation -- agree with management as described in the hospitalist care plan. 3. Acute Bronchitis -- would recommend adding legionella urinary antigen and mycoplasma antigen -- continue current management per hospitalist. Disposition: The patient is safe and stable to remain in his current level of monitoring and care. If his clinical status changes, please notify the hospitalist service or news gathering technician service, and we will re-evaluate him for change in level of care based on his clinical presentation. Critical Care medicine will sign-off. Please reconsult as needed. Discussed Condition With Antonio Moon MD November 17, 2016 08:04
[2016-11-17] MEDS: BUDESONIDE-FORMOTEROL 80/4.5 MCG INHALER INH SCH ×2 (08:58→21:31)
[2016-11-17] MEDS: LISINOPRIL 10 MG TAB PO SCH (08:58)
[2016-11-17] MEDS: SODIUM CHLORIDE 0.9% FLUSH 10 ML FLUSH IV FLUSH SCH ×2 (08:58→21:32)
[2016-11-17] MEDS: TIOTROPIUM BROMIDE 18 MCG INH INH SCH (08:58)
[2016-11-17] MEDS: ASPIRIN EC 81 MG TABEC PO SCH (08:59)
[2016-11-17] MEDS: HYDROCHLOROTHIAZIDE 25 MG TAB PO SCH (08:59)
[2016-11-17] MEDS: PANTOPRAZOLE SOD 40 MG DELAYED RELEASE TAB PO SCH (08:59)
--- NOTE | 2016-11-17 09:20 | HHI.PR ---
Subjective Remarks Follow-up COPD exacerbation, lactic acidosis. The patient reports dyspnea, wheeze. No other complaints at this time. Denies abdominal pain, nausea, vomiting. Objective Vitals Vital Signs Date Time Temp Pulse Resp B/P Pulse Ox O2 Delivery O2 Flow Rate FiO2 11/17/16 09:00 Nasal Cannula 4.00 11/17/16 06:21 101 20 166/90 96 11/17/16 04:00 98.4 113 20 182/83 97 11/17/16 03:40 112 11/17/16 03:31 97 Nasal Cannula 4.00 11/17/16 02:51 120 20 181/81 98 Nasal Cannula 4 11/17/16 01:32 100 20 203/101 98 Nasal Cannula 3 11/17/16 00:53 88 18 174/77 97 Nasal Cannula 2 11/16/16 20:54 110 22 181/93 99 Simple Mask 12 11/16/16 20:53 99 Simple Mask 12 11/16/16 20:46 98.6 11/16/16 20:40 95 Nasal Cannula 3.00 I/O 11/16/16 11/16/16 11/16/16 11/17/16 11/17/16 11/17/16 07:00 15:00 23:00 07:00 15:00 23:00 Intake Total 480 ml Output Total 500 ml Balance -20 ml Intake Oral 480 ml Output Urine Total 500 ml # Voids 1 Result Diagram: 11/17/16 0530 11/17/16 [address] Angiography 11/17/16220 Signed Impressions: Service Date/Time: Thursday, November 17, 2016 02:37 - CONCLUSION: 1. No evidence of pulmonary embolism. Humble Conte MD Chest X-Ray 11/16/162049 Signed Impressions: Service Date/Time: Wednesday, November 16, 2016 21:01 - CONCLUSION: No evidence of acute cardiopulmonary disease. Louis Willson MD Objective Remarks General: Obese male in no acute distress. Heart: Regular rate and rhythm. No murmur. Lungs: Diffuse wheeze. Breathing is nonlabored. Abdomen: Soft, nontender, nondistended. Extremities: No lower extremity edema. Psych: Alert and oriented. Procedures None Urinary Catheter: No Vascular Central Line Catheter: No A/P Problem List: (1) SIRS (systemic inflammatory response syndrome) ICD Code: R65.10 Status: Acute (2) COPD exacerbation ICD Code: J44.1 Status: Acute (3) Gastroesophageal reflux disease ICD Code: K21.9 Status: Chronic (4) Hypertensive urgency ICD Code: I16.0 Status: Acute (5) Lactic acidosis ICD Code: E87.2 Status: Acute Assessment and Plan 1. Sepsis: Patient presented with leukocytosis, lactic acidosis, tachycardia. Source is presumed to be respiratory. Continue antibiotics, IV fluids. 2. Lactic acidosis: Serum lactic acid level has increased significantly. Appreciate critical care recommendations. Monitor lactic acid every 6 hours until serum level is trending down. 3. COPD exacerbation: Continue supplemental oxygen. Continue Solu-Medrol, bronchodilators. CT pulmonary angiogram is negative for pulmonary embolus. 4. Hypertensive urgency: Improved. Continue HCTZ, lisinopril. 5. GERD: Continue Protonix. 6. Hyperlipidemia: Continue statin. 7. DVT prophylaxis: Lovenox. Tigre Merchant MD November 17, 2016 09:20
--- NOTE | 2016-11-17 12:00 | EKG ---
Date Performed: 11/16/2016 Time Performed: 20:46:48 PTAGE: 66 years EKG: SINUS TACHYCARDIA ABNORMAL RHYTHM ECG NO PREVIOUS TRACING DOCTOR: Jonatan Mar Interpretating Date/Time 11/17/2016 11:58:10
--- NOTE | 2016-11-17 13:09 | EC ---
Study Study Date:11/17/2016 STUDY CONCLUSIONS SUMMARY - Procedure narrative: Image quality was fair. The study was technically limited due to poor acoustic window availability. - Left ventricle: The cavity size was normal. Systolic function was normal. The estimated ejection fraction was in the range of 60% to 65%. - Aortic valve: Trace regurgitation. If LV function is below 40, please consider prescribing an ACEI or ARB or document rationale for non-use. PROCEDURE DATA STUDY STATUS: Elective. Procedure: Transthoracic echocardiography. Image quality was fair. The study was technically limited due to poor acoustic window availability. Scanning was performed from the parasternal, apical, and subcostal acoustic windows. Study completion: The patient tolerated the procedure well. Transthoracic echocardiography. M-mode, complete 2D, complete spectral Doppler, and color Doppler. Height: Height: 69in. Weight: Weight: 233.5lb. Body mass index: BMI: 34.6kg/m^2. Body surface area: BSA: 2.21m^2. Patient status: Inpatient. CARDIAC ANATOMY LEFT VENTRICLE: The cavity size was normal. Systolic function was normal. The estimated ejection fraction was in the range of 60% to 65%. Images were inadequate for LV wall motion assessment. AORTIC VALVE: The valve appears to be grossly normal. Doppler: There was no stenosis. Trace regurgitation. Valve area: 2.87cm^2 (Vmax). Indexed valve area: 1.3cm^2/m^2 (Vmax). MITRAL VALVE: The valve appears to be grossly normal. Doppler: There was no evidence for stenosis. Trace regurgitation. Peak gradient: 6mm Hg (D). LEFT ATRIUM: The atrium was normal in size. RIGHT VENTRICLE: The cavity size was normal. Systolic function was normal. PULMONIC VALVE: Not visualized. TRICUSPID VALVE: Not well visualized. Doppler: There was no evidence for stenosis. PERICARDIUM: There was no pericardial effusion. Patient weight: 233.5lb _Ejection fraction:_ 65-75% _Fractional shortening:_ 32% up to 5Kg 5-11.5Kg 11.6-22.9Kg 23-45Kg 45-57Kg Aortic Root 7-13 <17 13-22 17-27 17-27 LA diam 6-13 <23 24-38 33-47 37-40 RVID 10-17 7-15 7-15 7-18 8-17 LVIDd 12-22 <32 24-38 33-47 37-40 LVPW 2-4 3-6 5-7 6-8 7-8 IVS 2-4 3-6 5-7 6-8 7-8 BASIC MEASUREMENTS ADULT NORMAL Left ventricle LV internal dimension, ED, chordal *29.8 mm 43-52 level, PLAX LV internal dimension, ES, chordal *20.3 mm 23-38 level, PLAX Fractional shortening, chordal level, 32 % >29 PLAX LV posterior wall thickness, ED 9.33 mm IVS/LVPW ratio, ED 1.17 <1.3 Ventricular septum Septal thickness, ED 10.9 mm Aortic valve Leaflet separation 19 mm 15-26 Right ventricle RV internal dimension, ED, PLAX *18.3 mm 19-38 BASIC MEASUREMENTS ADULT NORMAL Aortic valve Leaflet separation 19 mm 15-26 Aorta Root diameter, ED 24 mm 20-37 Left atrium Anterior-posterior dimension, ES 34 mm 19-40 Anterior-posterior dimension index, ES 1.54 cm/m^2 <2.2 LA/aortic root ratio 1.42 DOPPLER MEASUREMENTS ADULT NORMAL Aortic valve Peak velocity, S 153 cm/s Valve area, Vmax 2.87 cm^2 Valve area index, Vmax 1.3 cm^2/m^2 Regurgitant velocity, ED 350 cm/s Regurgitant deceleration 1140 cm/s^2 Regurgitant pressure half-time 902 ms Regurgitant gradient, ED 49 mm Hg Mitral valve Peak E-wave velocity 122 cm/s Peak A-wave velocity 117 cm/s Deceleration time 173 ms 150-230 Peak gradient, D 6 mm Hg Peak E/A ratio 1 Pulmonic valve Peak velocity, S 118 cm/s LEGEND: Mean values are shown as u=mean value. Asterisk (*) pimentel values outside specified normal range. Prepared and signed by Raymundo Flood [id number]
[2016-11-17] MEDS: LEVOFLOXACIN 750 MG PREMIX INJ 150 ML IV SCH (21:31)
[2016-11-17] MEDS: ATORVASTATIN 80 MG TAB PO SCH (21:32)
[2016-11-18] VITALS (10 sets, daily range): BP systolic 149–166; BP diastolic 67–82; PULSE 74–95; RESP 18–22; TEMP 97.4–98.3; O2SAT 94–97
[2016-11-18] MEDS: RESP: ALBUTEROL 2.5 MG/IPRATROPIUM 0.5 MG NEB (SCH) NEB ×4 (03:30→21:14)
[2016-11-18] MEDS: ENOXAPARIN SODIUM 40 MG/0.4 ML SYRINGE SQ SCH (05:24)
[2016-11-18] MEDS: methylPREDNISolone SOD SUCC 40 MG/1 ML VIAL IV PUSH SCH ×4 (05:24→23:32)
[2016-11-18 07:42] LABS: AUTOMATED NEUTROPHIL # 15.7 TH/MM3 (1.8-7.7); BASOPHIL % 0.1 % (0.0-2.0); HEMATOCRIT 41.8 % (39.0-51.0); HEMO FLAGS DIFF FINAL; LYMPH % 4.1 % (9.0-44.0); LYMPHOCYTE # 0.7 TH/MM3 (1.0-4.8); MEAN CELL VOLUME 91.2 FL (80.0-100.0); MEAN CORPUSCULAR HEMOGLOBIN 30.8 PG (27.0-34.0); MEAN CORPUSCULAR HGB CONC 33.8 % (32.0-36.0); MONO % 3.1 % (0.0-8.0); NEUT % 92.7 % (16.0-70.0); PLATELET COUNT 201 TH/MM3 (150-450); RED BLOOD COUNT 4.58 MIL/MM3 (4.50-5.90); RED CELL DISTRIBUTION WIDTH 13.5 % (11.6-17.2); WHITE BLOOD COUNT 16.9 TH/MM3 (4.0-11.0)
[2016-11-18 08:02] LABS: POTASSIUM 3.3 MEQ/L (3.5-5.1)
[2016-11-18] MEDS: BUDESONIDE-FORMOTEROL 80/4.5 MCG INHALER INH SCH ×2 (08:48→21:56)
[2016-11-18] MEDS: TIOTROPIUM BROMIDE 18 MCG INH INH SCH (08:48)
[2016-11-18] MEDS: ASPIRIN EC 81 MG TABEC PO SCH (08:50)
[2016-11-18] MEDS: LISINOPRIL 10 MG TAB PO SCH (08:50)
[2016-11-18] MEDS: HYDROCHLOROTHIAZIDE 25 MG TAB PO SCH (08:50)
[2016-11-18] MEDS: PANTOPRAZOLE SOD 40 MG DELAYED RELEASE TAB PO SCH (08:50)
[2016-11-18] MEDS: SODIUM CHLORIDE 0.9% FLUSH 10 ML FLUSH IV FLUSH SCH ×2 (08:51→21:56)
[2016-11-18] MEDS ORDERED: POTASSIUM CHLORIDE 20 MEQ CONTROLLED RELEASE TAB PO ONE (12:45)
--- NOTE | 2016-11-18 13:25 | HHI.PR ---
Subjective Remarks Follow-up COPD exacerbation, lactic acidosis. Patient states "I feel great". Denies dyspnea, chest pain. Still requiring oxygen, 4 L per nasal cannula. Objective Vitals Vital Signs Date Time Temp Pulse Resp B/P Pulse Ox O2 Delivery O2 Flow Rate FiO2 11/18/16 12:00 98.3 90 20 150/67 96 11/18/16 09:07 97 Nasal Cannula 4.00 11/18/16 08:00 97.4 82 20 166/75 95 11/18/16 08:00 96 Nasal Cannula 4.00 11/18/16 04:00 97.9 88 20 160/72 95 11/18/16 02:32 92 11/18/16 00:00 98.0 84 22 160/82 97 11/17/16 21:30 Nasal Cannula 4.00 11/17/16 20:00 97.6 92 20 176/79 95 11/17/16 16:07 97.5 82 18 159/70 95 11/17/16 15:31 97 Nasal Cannula 4.00 I/O 11/17/16 11/17/16 11/17/16 11/18/16 11/18/16 11/18/16 07:00 15:00 23:00 07:00 15:00 23:00 Intake Total 480 ml 384 ml 240 ml 240 ml Output Total 500 ml Balance -20 ml 384 ml 240 ml 240 ml Intake Oral 480 ml 380 ml 240 ml 240 ml IV Total 4 ml Output Urine Total 500 ml # Voids 1 5 1 2 # Bowel Movements 1 0 0 Result Diagram: 11/18/16 0610 11/18/16 [address] Angiography 11/17/16220 Signed Impressions: Service Date/Time: Thursday, November 17, 2016 02:37 - CONCLUSION: 1. No evidence of pulmonary embolism. Humble Conte MD Chest X-Ray 11/16/162049 Signed Impressions: Service Date/Time: Wednesday, November 16, 2016 21:01 - CONCLUSION: No evidence of acute cardiopulmonary disease. Louis Willson MD Objective Remarks General: Obese male in no acute distress. Heart: Regular rate and rhythm. No murmur. Lungs: Scattered wheeze. Breathing is nonlabored. Abdomen: Soft, nontender, nondistended. Extremities: No lower extremity edema. Psych: Alert and oriented. Procedures None Urinary Catheter: No Vascular Central Line Catheter: No A/P Problem List: (1) SIRS (systemic inflammatory response syndrome) ICD Code: R65.10 Status: Acute (2) COPD exacerbation ICD Code: J44.1 Status: Acute (3) Gastroesophageal reflux disease ICD Code: K21.9 Status: Chronic (4) Hypertensive urgency ICD Code: I16.0 Status: Acute (5) Lactic acidosis ICD Code: E87.2 Status: Acute Assessment and Plan 1. Sepsis: Patient presented with leukocytosis, lactic acidosis, tachycardia. Source is presumed to be respiratory. Continue antibiotics. 2. Lactic acidosis: Serum lactic acid level is trending down. 3. COPD exacerbation: Continue supplemental oxygen. Continue Solu-Medrol, bronchodilators. CT pulmonary angiogram is negative for pulmonary embolus. Will attempt to wean oxygen. Still requiring oxygen, will request home oxygen walk test. 4. Hypertensive urgency: Improved. Continue HCTZ, lisinopril. 5. GERD: Continue Protonix. 6. Hyperlipidemia: Continue statin. 7. DVT prophylaxis: Lovenox. Discharge Planning Possible discharge home tomorrow pending include improvement. Tigre Merchant MD November 18, 2016 13:25
[2016-11-18] MEDS: LEVOFLOXACIN 750 MG PREMIX INJ 150 ML IV SCH (21:56)
[2016-11-18] MEDS: ATORVASTATIN 80 MG TAB PO SCH (21:56)
[2016-11-19] VITALS: BP 148/78; PULSE 82; RESP 20; TEMP 97.7; O2SAT 94
[2016-11-19 04:00] VITALS: BP 144/80; PULSE 76; RESP 18; TEMP 97.6; O2SAT 92
[2016-11-19] MEDS: RESP: ALBUTEROL 2.5 MG/IPRATROPIUM 0.5 MG NEB (SCH) NEB ×3 (04:58→15:24)
[2016-11-19 05:01] VITALS: O2SAT 91
[2016-11-19] MEDS: ENOXAPARIN SODIUM 40 MG/0.4 ML SYRINGE SQ SCH (05:14)
[2016-11-19] MEDS: methylPREDNISolone SOD SUCC 40 MG/1 ML VIAL IV PUSH SCH ×2 (05:14→12:00)
[2016-11-19 06:53] LABS: BASOPHIL % 0.1 % (0.0-2.0); LYMPH % 4.3 % (9.0-44.0); LYMPHOCYTE # 0.7 TH/MM3 (1.0-4.8); MEAN CELL VOLUME 90.5 FL (80.0-100.0); MEAN CORPUSCULAR HEMOGLOBIN 31.6 PG (27.0-34.0); MEAN CORPUSCULAR HGB CONC 34.9 % (32.0-36.0); NEUT % 92.6 % (16.0-70.0); PLATELET COUNT 203 TH/MM3 (150-450); RED BLOOD COUNT 4.75 MIL/MM3 (4.50-5.90); RED CELL DISTRIBUTION WIDTH 13.3 % (11.6-17.2); WHITE BLOOD COUNT 16.2 TH/MM3 (4.0-11.0)
[2016-11-19 07:06] LABS: BICARBONATE 32.4 MEQ/L (21.0-32.0); POTASSIUM 3.1 MEQ/L (3.5-5.1)
[2016-11-19 07:14] LABS: HEMO FLAGS AUTO DIFF
[2016-11-19] MEDS ORDERED: POTASSIUM CHLORIDE 20 MEQ CONTROLLED RELEASE TAB PO ONE (07:30)
[2016-11-19 08:00] VITALS: BP 162/80; PULSE 80; RESP 18; TEMP 97.8; O2SAT 93
[2016-11-19] MEDS: PANTOPRAZOLE SOD 40 MG DELAYED RELEASE TAB PO SCH (08:55)
[2016-11-19] MEDS: LISINOPRIL 10 MG TAB PO SCH (08:56)
[2016-11-19] MEDS: HYDROCHLOROTHIAZIDE 25 MG TAB PO SCH (08:56)
[2016-11-19] MEDS: TIOTROPIUM BROMIDE 18 MCG INH INH SCH (08:59)
[2016-11-19] MEDS: BUDESONIDE-FORMOTEROL 80/4.5 MCG INHALER INH SCH (08:59)
[2016-11-19] MEDS: SODIUM CHLORIDE 0.9% FLUSH 10 ML FLUSH IV FLUSH SCH (09:00)
[2016-11-19] MEDS: ASPIRIN EC 81 MG TABEC PO SCH (09:00)
[2016-11-19 09:55] LABS: SCAN/DIFF AUTO DIFF CONFIRMED
[2016-11-19 10:17] VITALS: O2SAT 92
--- NOTE | 2016-11-19 11:07 | HHI.PR ---
Subjective Remarks Follow-up COPD exacerbation. Patient has been off oxygen all morning, including while ambulating. Oxygen saturations have remained greater than 90%. He denies dyspnea, chest pain. He wants to go home today. Objective Vitals Vital Signs Date Time Temp Pulse Resp B/P Pulse Ox O2 Delivery O2 Flow Rate FiO2 11/19/16 10:17 92 11/19/16 08:00 97.8 80 18 162/80 93 11/19/16 05:01 91 21 11/19/16 04:00 97.6 76 18 144/80 92 11/19/16 00:00 97.7 82 20 148/78 94 11/18/16 21:14 97 21 11/18/16 20:30 Nasal Cannula 2.00 11/18/16 20:00 97.7 82 18 94 11/18/16 20:00 150/82 Automatic Cuff 11/18/16 16:00 97.4 95 20 149/67 95 11/18/16 12:00 98.3 90 20 150/67 96 I/O 11/18/16 11/18/16 11/18/16 11/19/16 11/19/16 11/19/16 07:00 15:00 23:00 07:00 15:00 23:00 Intake Total 240 ml 840 ml 240 ml 240 ml Balance 240 ml 840 ml 240 ml 240 ml Intake Oral 240 ml 840 ml 240 ml 240 ml # Voids 2 3 1 3 # Bowel Movements 0 1 1 0 Result Diagram: 11/19/16 0615 11/19/16 [address] Angiography 11/17/161 Signed Impressions: Service Date/Time: Thursday, November 17, 2016 02:37 - CONCLUSION: 1. No evidence of pulmonary embolism. Humble Conte MD Chest X-Ray 11/16/162049 Signed Impressions: Service Date/Time: Wednesday, November 16, 2016 21:01 - CONCLUSION: No evidence of acute cardiopulmonary disease. Louis Willson MD Objective Remarks General: Obese male in no acute distress. Heart: Regular rate and rhythm. No murmur. Lungs: Mild scattered wheeze. Breathing is nonlabored. Abdomen: Soft, nontender, nondistended. Extremities: No lower extremity edema. Psych: Alert and oriented. Procedures None Urinary Catheter: No Vascular Central Line Catheter: No A/P Problem List: (1) SIRS (systemic inflammatory response syndrome) ICD Code: R65.10 Status: Acute (2) COPD exacerbation ICD Code: J44.1 Status: Acute (3) Gastroesophageal reflux disease ICD Code: K21.9 Status: Chronic (4) Hypertensive urgency ICD Code: I16.0 Status: Acute (5) Lactic acidosis ICD Code: E87.2 Status: Acute Assessment and Plan 1. Sepsis: Patient presented with leukocytosis, lactic acidosis, tachycardia. Source is presumed to be respiratory. Continue antibiotics. 2. Lactic acidosis: Serum lactic acid level is trending down. 3. COPD exacerbation: Continue supplemental oxygen. Continue Solu-Medrol, bronchodilators. CT pulmonary angiogram is negative for pulmonary embolus. Patient has been stable on room air this morning. Will check respiratory home oxygen walk test to determine need for oxygen at discharge. 4. Hypertensive urgency: Improved. Continue HCTZ, lisinopril. 5. GERD: Continue Protonix. 6. Hyperlipidemia: Continue statin. 7. DVT prophylaxis: Lovenox. Discharge Planning Plan for discharge home today after completion of respiratory home oxygen walk test. Tigre Merchant MD November 19, 2016 11:07
[2016-11-19] MEDS ORDERED: LEVA750T PO (11:10)
[2016-11-19] MEDS ORDERED: PRED5PAK PO (11:10)
--- NOTE | 2016-11-19 11:11 | HHI.DCPOC ---
Discharge Care Plan Diagnosis: (1) COPD exacerbation (2) Lactic acidosis Goals to Promote Your Health * To prevent worsening of your condition and complications * To maintain your health at the optimal level Directions to Meet Your Goals Take your medications as prescribed Follow your dietary instruction Follow activity as directed Keep your appointments as scheduled Take your immunizations and boosters as scheduled If your symptoms worsen call your PCP, if no PCP go to Urgent Care Center or Emergency Room Smoking is Dangerous to Your Health. Avoid second hand smoke Call the 24-hour hour crisis hotline for domestic abuse at Tigre Merchant MD November 19, 2016 11:11
[2016-11-19] MEDS ORDERED: OXYGENTANK NAS.CANULA (13:13)
[2016-11-19 15:24] VITALS: O2SAT 97
--- NOTE | 2016-11-23 14:33 | HHI.DS ---
Discharge Summary Admission Date November 16, 2016 at 23:14 Discharge Date: November 19, 2016 Admitting Diagnosis Copd Exacerbation, bronchitis, hypoxemia on RA (1) SIRS (systemic inflammatory response syndrome) ICD Code: R65.10 (2) COPD exacerbation ICD Code: J44.1 (3) Gastroesophageal reflux disease ICD Code: K21.9 (4) Hypertensive urgency ICD Code: I16.0 (5) Lactic acidosis ICD Code: E87.2 Procedures None Brief History - From Admission Mr. Barton is a 66-year-old male with a history of asthma, chronic bronchitis , PTSD, GERD, hypertension, and arthritis who presented to the emergency room on 11/16/2016 complaining of sudden onset of shortness of breath. Oxygen saturation was noted in the low 80s upon EMS arrival at the patients home. He was given Solu-Medrol and multiple albuterol nebulizer treatments with breathing did not improve until he was given subcutaneous epinephrine 0.3 mg. Blood pressure was found elevated upon arrival in the ED at 181/93 and apparently the patient has not been taking his blood pressure medications for 2 weeks. The patient is seen in the emergency room. He states that he is been being treated by his primary care physician for bronchitis with antibiotics and steroids for a productive cough with clear sputum that has been present for duration of 1 week . He states that he was watching his television with his 2 dogs when he felt like he could not breathe. His symptoms were severe and onset was quite sudden. He had never experienced anything like this before. He denies fever, nausea, vomiting, diarrhea, black or red stools, burning or pain with urination, or syncope. He denies diabetes, CAD, CVA, seizures, thyroid, CA, prostate problems, blood clots in legs or lungs. He states he hasn't been taking antihypertensive medications - reports that he forgets to take them. . CBC/BMP: 11/19/1615 11/19/[address] Angiography 11/17/16 0221 Signed Impressions: Service Date/Time: Thursday, November 17, 2016 02:37 - CONCLUSION: 1. No evidence of pulmonary embolism. Humble Conte MD Chest X-Ray 11/16/162049 Signed Impressions: Service Date/Time: Wednesday, November 16, 2016 21:01 - CONCLUSION: No evidence of acute cardiopulmonary disease. Louis Willson MD PE at Discharge General: Obese male in no acute distress. Heart: Regular rate and rhythm. No murmur. Lungs: Mild scattered wheeze. Breathing is nonlabored. Abdomen: Soft, nontender, nondistended. Extremities: No lower extremity edema. Psych: Alert and oriented. Hospital Course The patient was admitted for treatment of COPD exacerbation, lactic acidosis. Serum lactic acid level was repeated and trended down. He was continued on IV fluids, steroids, and antibiotics. The patient's respiratory status improved throughout the hospitalization. Home oxygen walk test was completed and the patient's room air oxygen saturation was 87%. Arrangements were made by case management for the patient to have home oxygen. He was felt to be stable for discharge home Pt Condition on Discharge: Stable Discharge Disposition: Discharge Home Discharge Time: > 30 minutes Discharge Instructions DIET: Follow Instructions for: Heart Healthy Diet Activities you can perform: Regular-No Restrictions Follow up Referrals: PCP Follow-up - 1 Week Pulmonology New Medications: Levofloxacin (Levaquin) 750 Mg Tab 750 MG PO DAILY Infection #3 Ref 0 TAB Oxygen tank (Oxygen tank) 1 Ea Tank 2 LITER ALDEN.CANULA CONTINUOUS Oxygen Concentrator Portable Gaseous 2 L/min via Nasal Cannula Continuous For 99 months HYPOXEMIA PREVENTION #1 CYLINDER Prednisone (21) 5 mg tab Dose Pack (Prednisone (21) 5 mg tab Dose Pack) 5 Mg Dspk 5 MG PO DIRECTED Inflammation #1 Ref 0 DSPK Continued Medications: Albuterol 18 GM Inh (Ventolin Hfa 18 GM Inh) 90 Mcg/Act Aer 2 PUFF INH Q4H PRN SHORTNESS OF BREATH #1 Ref [address] (Aspirin 81) 81 Mg Tabdr 81 MG PO DAILY Ref 0 TAB Atorvastatin (Atorvastatin) 80 Mg Tab 80 MG PO HS Cholesterol Management #30 Ref 0 TAB Budesonide-Formoterol Inh (Symbicort Inh) 80-4.5 Mcg/Act Aero 2 PUFF INH BID Asthma Management #1 Ref 0 INHALER Dextromethorphan-Guaifenesin (Mucinex DM) 30-600 Mg Tab 1 TAB PO BID PRN CHEST CONGESTION AND/OR COUGH Ref 0 TAB Hydrochlorothiazide (Hydrochlorothiazide) 25 Mg Tab 25 MG PO DAILY #30 Ref 0 TAB Lisinopril (Lisinopril) 10 Mg Tab 10 MG PO DAILY #30 Ref 0 TAB Tiotropium Inh (Spiriva Handihaler) 18 Mcg Cap 18 MCG INH DAILY 1 capsule = 18 mcg COPD #30 Ref 0 CAP Tigre Merchant MD November 23, 2016 14:33
== END 2016-11-19 18:01 | disposition home or self-care (01) | DRG 872 ==
LOC: NEPE 20:43 → NEDA 23:14 → N04B 11-17 03:06
PROVIDERS: ADMIT Family Medicine; ATTEND Family Medicine
DX: A41.9 Sepsis, unspecified organism (principal); E87.2 Acidosis; J44.0 Chronic obstructive pulmonary disease with (acute) lower respiratory infection; J44.1 Chronic obstructive pulmonary disease with (acute) exacerbation; K21.9 Gastro-esophageal reflux disease without esophagitis; I16.0 Hypertensive urgency; F43.10 Post-traumatic stress disorder, unspecified; I10 Essential (primary) hypertension; J20.9 Acute bronchitis, unspecified; E78.5 Hyperlipidemia, unspecified; Z87.891 Personal history of nicotine dependence; Z91.14 Patient's other noncompliance with medication regimen
CPT/HCPCS: 36600; 71010; 71275; 80048; 80053; 82550; 82552; 82805; 83605; 83735; 83880; 84484; 85025; 85610; 85730; 86738; 87040; 93005; 93306; 94620; 94640; 94664; 96365; 96367; 96375; J0360; J1650; J1956; J2920; J3475; J7030; Q9967

== ENCOUNTER 2017-02-07 11:44 | Inpatient (IN) | payer OTHER, MEDICARE ==
[~2017-02-07] VITALS: Ht 182.9 cm; Wt 104.6 kg
[2017-02-07] VITALS (11 sets, daily range): BP systolic 144–179; BP diastolic 70–85; PULSE 90–109; RESP 19–41; TEMP 96–98; O2SAT 88–97
[~2017-02-07 11:44] MED LIST changes: -ALBU17I INH; +ASPI-110 PO; -ASPI81TA82 PO; +ATOR1TAB18 PO; -ATOR80TA PO; -BUSP10 PO; -FENO54TA PO; -HYDR-2768 PO; +HYDR25TA5 PO; -IBUP800 PO; +LEVA750T PO; -LISI-360 PO; +LISI10TA3 PO; +MUCI30TA2 PO; +OXYGENTANK NAS.CANULA; +PRED5PAK PO; -REME15TA PO; +VENTAER INH; -VITA100018 PO; -ZOLO50TA PO
[2017-02-07] MEDS ORDERED: methylPREDNISolone SOD SUCC 125 MG/2 ML VIAL IVP ONE (12:00)
[2017-02-07 12:23] LABS: AUTOMATED NEUTROPHIL # 10.1 TH/MM3 (1.8-7.7); BASOPHIL # 0.1 TH/MM3 (0-0.2); BASOPHIL % 0.4 % (0.0-2.0); EOSINOPHIL % 0.3 % (0.0-4.0); HEMATOCRIT 44.5 % (39.0-51.0); HEMO FLAGS DIFF FINAL; LYMPH % 8.9 % (9.0-44.0); LYMPHOCYTE # 1.1 TH/MM3 (1.0-4.8); MEAN CORPUSCULAR HGB CONC 34.4 % (32.0-36.0); MONO % 9.9 % (0.0-8.0); NEUT % 80.5 % (16.0-70.0); PLATELET COUNT 203 TH/MM3 (150-450); RED BLOOD COUNT 4.94 MIL/MM3 (4.50-5.90); RED CELL DISTRIBUTION WIDTH 12.8 % (11.6-17.2); WHITE BLOOD COUNT 12.6 TH/MM3 (4.0-11.0)
[2017-02-07 12:36] LABS: BICARBONATE 29.1 MEQ/L (21.0-32.0); POTASSIUM 3.6 MEQ/L (3.5-5.1)
--- NOTE | 2017-02-07 12:36 | RADRPT ---
EXAM DATE/TIME: 02/07/2017 11:58 [facility] COMPARISON: CT PULMONARY ANGIOGRAM, November 17, 2016, 2:37. CT THORAX W CONTRAST, January 15, 2014, 20:10. CHEST PA & LAT, January 15, 2014, 18:13. CHEST SINGLE AP, November 16, 2016, 21:01. INDICATIONS : Short of breath and wheezing. MEDICAL HISTORY : Chronic obstructive pulmonary disease. SURGICAL HISTORY : None. ENCOUNTER: Initial ACUITY: 3 days PAIN SCORE: 0/10 LOCATION: Bilateral chest FINDINGS: The lungs are clear without infiltrate, nodule, or mass. There is no appreciable pleural effusion fo r technique. Heart and mediastinum are unremarkable. Subcentimeter density is present overlapping th e right first rib in the bony structures not significantly changed. CONCLUSION: No acute cardiopulmonary disease. Concepcion Boo MD on February 07, 2017 at 12:32 Board Certified Radiologist. This report was verified electronically.
[2017-02-07] MEDS ORDERED: ZITHTAB PO (12:45)
[2017-02-07] MEDS ORDERED: MEDR4PAK PO (12:45)
[2017-02-07] MEDS: RESP: ALBUTEROL 2.5 MG/IPRATROPIUM 0.5 MG NEB (SCH) INH (12:51)
--- NOTE | 2017-02-07 13:02 | PD ---
HPI Chief Complaint: Respiratory Symptoms Time Seen by Provider: 12:58 Travel History International Travel<30 days: No Contact w/Intl Traveler<30days: No Traveled to known affect area: No History of Present Illness HPI 66-year-old male that presents to the ED for evaluation of shortness of breath. Patient comes here by ambulance for evaluation of this. Patient states that he's had cold-like symptoms for the past week. Per patient his was recently diagnosed with the flu but he tells me that she was put on azithromycin as well as prednisone. He was given the same. He states that he uses inhalers and nebulizers at home with minimal relief. He does use oxygen at home when needed. He has a history of COPD. Per patient this feels similar to his COPD. No chest pain. Shortness of breath with exertion as well as with sitting. Per patient the symptoms started getting worse yesterday when he was not able to get his shortness of breath under control. Per patient he uses inhalers as well as nebulizers with minimal relief. He tells me he almost done with azithromycin. He states that he has productive cough. No history of heart problems. Takes a blood thinner but does not know why. PFSH Past Medical History Arthritis: Yes Asthma: Yes Blood Disorders: No Anxiety: Yes Depression: Yes Heart Rhythm Problems: No Cancer: No Cardiovascular Problems: Yes High Cholesterol: Yes Chemotherapy: Yes Chest Pain: No Congestive Heart Failure: No COPD: Yes Endocrine: No Gastrointestinal Disorders: Yes (GERD) GERD: Yes Genitourinary: No Hypertension: Yes Immune Disorder: No Implanted Vascular Access Dvce: No Musculoskeletal: Yes Neurologic: No Psychiatric: Yes (PTSD) Reproductive: No Respiratory: Yes Immunizations Current: Yes (PV23) Past Surgical History Abdominal Surgery: Yes (HERNIA AND SHRAPNEL) Appendectomy: Yes Other Surgery: Yes Social History Alcohol Use: No Tobacco Use: No Substance Use: No Allergies-Medications (Allergen,Severity, Reaction): Coded Allergies: Keflex (Verified Allergy, Severe, anaphylaxis, 02/07/17) Reported Meds & Prescriptions Reported Meds & Active Scripts Active Oxygen tank (Oxygen) 1 Ea Tank 2 Liter ALDEN.CANULA CONTINUOUS Oxygen Concentrator Portable Gaseous 2 L/min via Nasal Cannula Continuous For 99 months Reported Medrol Dosepak (Methylprednisolone) 4 Mg Dspk 4 Mg PO DIRECTED Per Pharmacist direction Zithromax Z-Wolfgang (Azithromycin) 250 Mg Dspk 250 Mg PO DIRECTED 500 MG (2 tabs) day 1, then 1 tab days 2-5. Aspirin 81 (Aspirin) 81 Mg Tabdr 81 Mg PO DAILY Atorvastatin (Atorvastatin Calcium) 80 Mg Tab 80 Mg PO HS Hydrochlorothiazide 25 Mg Tab 25 Mg PO DAILY Lisinopril 10 Mg Tab 10 Mg PO DAILY Ventolin Hfa 18 GM Inh (Albuterol Sulfate) 90 Mcg/Act Aer 2 Puff INH Q4H PRN Symbicort Inh (Budesonide/Formoterol Fumarate) 80-4.5 Mcg/Act Aero 2 Puff INH BID Spiriva Handihaler (Tiotropium Inh) 18 Mcg Cap 18 Mcg INH DAILY 1 capsule = 18 mcg Mucinex DM (Dextromethorphan-Guaifenesin) 30-600 Mg Tab 1 Tab PO BID PRN Review of Systems Except as stated in HPI: all other systems reviewed are Neg Physical Exam Narrative GENERAL: Well-nourished, well-developed patient in no apparent distress. SKIN: Warm and dry. HEAD: Atraumatic. Normocephalic. EYES: Pupils equal and round reactive to light and accommodation. No scleral icterus. No injection or drainage. ENT: No nasal bleeding or discharge. Mucous membranes pink and moist. TMs are clear with no sign of infection or perforation. No mastoid tenderness. Ear canals are intact bilaterally. No lymphadenopathy. Nostril mucosa is red and moist with clear mucus noted. No sinus tenderness to palpation noted. Tonsils are not enlarged or swollen. No ulvua Deviation. Tongue is midline. NECK: Trachea midline. No JVD. No meningeal signs noted CARDIOVASCULAR: Regular rate and rhythm. RESPIRATORY: No accessory muscle use. Wheezings heard in all lung martino. Breath sounds equal bilaterally. GASTROINTESTINAL: Abdomen soft, non-tender, nondistended. Hepatic and splenic margins not palpable. MUSCULOSKELETAL: Extremities without clubbing, cyanosis, or edema. No obvious deformities. Full range of motion of the upper and lower extremities bilaterally. 2+ pulses bilaterally. NEUROLOGICAL: Awake and alert. No obvious cranial nerve deficits. Motor grossly within normal limits. Five out of 5 muscle strength in the arms and legs. Normal speech. PSYCHIATRIC: Appropriate mood and affect; insight and judgment normal. Data Data Last Documented VS Vital Signs Date Time Temp Pulse Resp B/P Pulse Ox O2 Delivery O2 Flow Rate FiO2 02/07/17 13:21 88 Room Air 02/07/17 12:31 2.00 02/07/17 12:02 98.0 91 22 164/84 Orders Electrocardiogram (02/07/17 11:57) Basic Metabolic Panel (Bmp) (02/07/17 11:57) Complete Blood Count With Diff (02/07/17 11:57) Chest, Single Ap (02/07/17 11:57) Ecg Monitoring (02/07/17 11:57) Iv Access Insert/Monitor (02/07/17 11:57) Oximetry (02/07/17 11:57) Oxygen Administration (02/07/17 11:57) Methylprednisolone So Succ Inj (Solumedr (02/07/17 12:00) Albuterol-Ipratropium Neb (Duoneb Neb) (02/07/17 12:00) Admit Order (Ed Use Only) (02/07/17 13:41) Aspirin Ec (Ecotrin Ec) (02/08/17 09:00) Atorvastatin (Lipitor) (02/07/17 21:00) Hydrochlorothiazide (Hydrodiuril) (02/08/17 09:00) Lisinopril (Prinivil) (02/08/17 09:00) (Nf) Dextromethorphan-Guaifenesin (Mucin (02/07/17 13:45) Labs Laboratory Tests Test 02/07/17 12:05 White Blood Count 12.6 TH/MM3 Red Blood Count 4.94 MIL/MM3 Hemoglobin 15.3 GM/DL Hematocrit 44.5 % Mean Corpuscular Volume 90.0 FL Mean Corpuscular Hemoglobin 31.0 PG Mean Corpuscular Hemoglobin 34.4 % Concent Red Cell Distribution Width 12.8 % Platelet Count 203 TH/MM3 Mean Platelet Volume 9.3 FL Neutrophils (%) (Auto) 80.5 % Lymphocytes (%) (Auto) 8.9 % Monocytes (%) (Auto) 9.9 % Eosinophils (%) (Auto) 0.3 % Basophils (%) (Auto) 0.4 % Neutrophils # (Auto) 10.1 TH/MM3 Lymphocytes # (Auto) 1.1 TH/MM3 Monocytes # (Auto) 1.2 TH/MM3 Eosinophils # (Auto) 0.0 TH/MM3 Basophils # (Auto) 0.1 TH/MM3 CBC Comment DIFF FINAL Differential Comment Sodium Level 137 MEQ/L Potassium Level 3.6 MEQ/L Chloride Level 100 MEQ/L Carbon Dioxide Level 29.1 MEQ/L Anion Gap 8 MEQ/L Blood Urea Nitrogen 16 MG/DL Creatinine 1.03 MG/DL Estimat Glomerular Filtration 72 ML/MIN Rate Random Glucose 97 MG/DL Calcium Level 9.0 MG/DL MDM Medical Decision Making Medical Screen Exam Complete: Yes Emergency Medical Condition: Yes Medical Record Reviewed: Yes Interpretation(s) CBC & BMP Diagram 02/07/17 12:05 Last Impressions Chest X-Ray 02/07/17 1157 Signed Impressions: Service Date/Time: Tuesday, February 07, 2017 11:58 - CONCLUSION: No acute cardiopulmonary disease. Concepcion Boo MD Differential Diagnosis COPD exacerbation versus bronchitis versus pneumonia versus hyperglycemia versus COPD versus viral illness Narrative Course 66-year-old male that presents to the ED for evaluation of shortness of breath. Patient was properly examined and was found to have signs and symptoms consistent with appears to be COPD exacerbation. Labs and imaging ordered. Patient was given nebulizer is here. Given prednisone as well. Labs and imaging showed no sign of acute disease other than slight leukocytosis. No sign of pneumonia and chest x-ray. Patient's bowels are reassuring here. I have my attending Dr. Hernandez evaluated the patient who recommends walk-in test to evaluate the patient. Patient had a walking test and did two laps in the pod and his O2 came down from 95-88. He still symptomatic. I did recheck the patient and his toe has a lot of wheezing on exam. At this time I believe because of patient's medical history and examination as well as observation for further evaluation of the COPD exacerbation. This was discussed with the patient is in agreement with plan. [id number] Dinero agrees to admission. Diagnosis Primary Impression: COPD (chronic obstructive pulmonary disease) Qualified Code: J44.1 - Chronic obstructive pulmonary disease with acute exacerbation Admitting Information Admitting Physician Requests: Lobo García Feb 07, 2017 13:02
--- NOTE | 2017-02-07 13:59 | HHI.HP ---
HPI Service [facility] Primary Care Physician Anthony Thomas MD Admission Diagnosis COPD exacerbation Diagnoses: Chief Complaint: Shortness of breath Travel History International Travel<30 Days: No Contact w/Intl Traveler <30 Da: No Traveled to Known Affected Are: No History of Present Illness This is a pleasant 66 y/o male who came to ER with Shortness of breath, brought in by EMS, Patient states that he's had cold-like symptoms for the past week. Per patient his was recently diagnosed with the flu but he tells me that she was put on azithromycin as well as prednisone. He was given the same. He states that he uses inhalers and nebulizers at home with minimal relief. He does use oxygen at home when needed. He has a history of COPD. Per patient this feels similar to his COPD. No chest pain. Shortness of breath with exertion as well as with sitting. Per patient the symptoms started getting worse yesterday when he was not able to get his shortness of breath under control. Per patient he uses inhalers as well as nebulizers with minimal relief. He tells me he almost done with azithromycin. He states that he has productive cough. No history of heart problems. Takes a blood thinner but does not know why. he has COPD, chronic bronchitis, PTSD, GERD, Hypertension, Hyperlipidemia, Anxiety, Depression, his oxygen saturation in the mid 80s today, his Primary Care Physician has given him multiple managements with Steroids and antibiotics and had recent admission in this facility in November this year. due to the same condition of COPD exacerbation received Levofloxacin and Steroids. Seen in Emergency room he has been coughing and get flushed face due to forceful effort to cough, productive one, but clear sputum production, Expiratory wheezing noticeable even without auscultation. I agree with full admission. Review of Systems Respiratory: COMPLAINS OF: Cough, Wheezing, Sputum production, Shortness of breath Except as stated in HPI: all other systems reviewed are Neg Past Family Social History Past Medical History OA COPD Anxiety disorder Depression CAD Hyperlipidemia Chemotherapy GERD Hypertension PTSD Multiple rib fractures from a fall from a ladder in 2013 Past Surgical History Hernia Repair and Shrapnel Appendectomy Arthroscopic surgery bilateral knees Reported Medications Reported Meds & Active Scripts Active Oxygen tank (Oxygen) 1 Ea Tank 2 Liter ALDEN.CANULA CONTINUOUS Oxygen Concentrator Portable Gaseous 2 L/min via Nasal Cannula Continuous For 99 months Reported Medrol Dosepak (Methylprednisolone) 4 Mg Dspk 4 Mg PO DIRECTED Per Pharmacist direction Zithromax Z-Wolfgang (Azithromycin) 250 Mg Dspk 250 Mg PO DIRECTED 500 MG (2 tabs) day 1, then 1 tab days 2-5. Aspirin 81 (Aspirin) 81 Mg Tabdr 81 Mg PO DAILY Atorvastatin (Atorvastatin Calcium) 80 Mg Tab 80 Mg PO HS Hydrochlorothiazide 25 Mg Tab 25 Mg PO DAILY Lisinopril 10 Mg Tab 10 Mg PO DAILY Ventolin Hfa 18 GM Inh (Albuterol Sulfate) 90 Mcg/Act Aer 2 Puff INH Q4H PRN Symbicort Inh (Budesonide/Formoterol Fumarate) 80-4.5 Mcg/Act Aero 2 Puff INH BID Spiriva Handihaler (Tiotropium Inh) 18 Mcg Cap 18 Mcg INH DAILY 1 capsule = 18 mcg Mucinex DM (Dextromethorphan-Guaifenesin) 30-600 Mg Tab 1 Tab PO BID PRN Allergies: Coded Allergies: Keflex (Verified Allergy, Severe, anaphylaxis, 02/07/17) Active Ordered Medications Current Medications Medications (Trade) Dose Ordered Sig/Paul Route Start Time Stop Time Status Last Admin (Ecotrin Ec) 81 mg DAILY PO 02/08/17 09:00 (Lipitor) 80 mg HS PO 02/07/17 21:00 (Hydrodiuril) 25 mg DAILY PO 02/08/17 09:00 (Prinivil) 10 mg DAILY PO 02/08/17 09:00 Patient Own Medication PT OWN MED: MUCINEX... BID PRN PO 02/07/17 14:15 Hold (NS 1000 ml Inj) 1,000 ml @ 83 mls/hr Q12H3M IV 02/07/17 14:00 02/07/17 14:31 (NS Flush) 2 ml UNSCH PRN IV FLUSH 02/07/17 14:00 (NS Flush) 2 ml BID IV FLUSH 02/07/17 21:00 (Tylenol) 650 mg Q4H PRN PO 02/07/17 14:00 (Zofran Inj) 4 mg Q6H PRN IVP 02/07/17 14:00 (Narcan Inj) 0.4 mg UNSCH PRN IV 02/07/17 14:00 (Cris-Colace) 1 tab BID PO 02/07/17 21:00 (Milk Of Magnesia Liq) 30 ml Q12H PRN PO 02/07/17 14:00 (Senokot) 17.2 mg Q12H PRN PO 02/07/17 14:00 (Dulcolax Supp) 10 mg DAILY PRN RECTAL 02/07/17 14:00 (Lactulose Liq) 30 ml DAILY PRN PO 02/07/17 14:00 (Lovenox Inj) 40 mg Q24H SQ 02/07/17 14:00 02/07/17 14:33 (Mucinex Er) 600 mg BID PO 02/07/17 21:00 Family History Mother from pneumonia after hip fracture Father cirrhosis Sister (one of them) from asthma Brother and sister from emphysema - smoked heavily Social History Tobacco: smoker; quit over 20 years ago Alcohol: denies Illicit Drugs: denies . Physical Exam Vital Signs Vital Signs Date Time Temp Pulse Resp B/P Pulse Ox O2 Delivery O2 Flow Rate FiO2 02/07/17 13:21 88 Room Air 02/07/17 12:31 95 Nasal Cannula 2.00 02/07/17 12:02 98.0 91 22 164/84 94 Nasal Cannula 2 02/07/17 12:00 92 Nasal Cannula 2 02/07/17 12:00 93 Nasal Cannula 2 02/07/17 11:57 98.0 90 26 164/84 97 Physical Exam GENERAL: Well-developed patient, in Moderate Respiratory distress specially when coughing. SKIN: No rashes, ecchymoses or lesions. Cool and dry. HEAD: Atraumatic. Normocephalic. No temporal or scalp tenderness. EYES: Pupils equal round and reactive. Extraocular motions intact. No scleral icterus. No injection or drainage. ENT: Nose without bleeding, purulent drainage or septal hematoma. Throat without erythema, tonsillar hypertrophy or exudate. Uvula midline. Airway patent. NECK: Trachea midline. No JVD or lymphadenopathy. Supple, nontender, no meningeal signs. CARDIOVASCULAR: Regular rate and rhythm without murmurs, gallops, or rubs. RESPIRATORY: Decreased breath sounds bilateral, Expiratory wheezing but no crackles. GASTROINTESTINAL: Abdomen soft, non-tender, nondistended. No hepato-splenomegaly , or palpable masses. No guarding. MUSCULOSKELETAL: Extremities without clubbing, cyanosis, or edema. No joint tenderness, effusion, or edema noted. No calf tenderness. Negative Homans sign bilaterally. NEUROLOGICAL: Awake and alert. Cranial nerves II through XII intact. Motor and sensory grossly within normal limits. Five out of 5 muscle strength in all muscle groups. Normal speech. Laboratory Laboratory Tests Test 02/07/17 12:05 White Blood Count 12.6 Red Blood Count 4.94 Hemoglobin 15.3 Hematocrit 44.5 Mean Corpuscular Volume 90.0 Mean Corpuscular Hemoglobin 31.0 Mean Corpuscular Hemoglobin 34.4 Concent Red Cell Distribution Width 12.8 Platelet Count 203 Mean Platelet Volume 9.3 Neutrophils (%) (Auto) 80.5 Lymphocytes (%) (Auto) 8.9 Monocytes (%) (Auto) 9.9 Eosinophils (%) (Auto) 0.3 Basophils (%) (Auto) 0.4 Neutrophils # (Auto) 10.1 Lymphocytes # (Auto) 1.1 Monocytes # (Auto) 1.2 Eosinophils # (Auto) 0.0 Basophils # (Auto) 0.1 CBC Comment DIFF FINAL Differential Comment Sodium Level 137 Potassium Level 3.6 Chloride Level 100 Carbon Dioxide Level 29.1 Anion Gap 8 Blood Urea Nitrogen 16 Creatinine 1.03 Estimat Glomerular Filtration 72 Rate Random Glucose 97 Calcium Level 9.0 Result Diagram: 02/07/17 1205 02/07/17 1205 Imaging Last Impressions Chest X-Ray 02/07/17 1157 Signed Impressions: Service Date/Time: Tuesday, February 07, 2017 11:58 - CONCLUSION: No acute cardiopulmonary disease. Concepcion Boo MD Assessment and Plan Assessment and Plan 1. COPD exacerbation after Flu symptomatology, admitted for management with Bronchodilator, Mucolytic, Incentive spirometry antibiotics, Steroids. Oxygen as needed to keep Oxygen saturation over 92% 2. OA by history 3. Anxiety Disorder/Depression continue Home medicines 4. CAD by history will continue Home medicines 5. Hyperlipidemia continue Atorvastatin 6. PTSD by history DVT prophylaxis with Lovenox. GI prophylaxis not needed at this time unless symptomatic. Code Status Full Code. Discussed Condition With Patient and with PA Mr. Lobo Edmonds Physician Certification 2 Midnight Certification Type: Admission for Inpatient Services Order for Inpatient Services The services are ordered in accordance with Medicare regulations or non- Medicare payer requirements, as applicable. In the case of services not specified as inpatient-only, they are appropriately provided as inpatient services in accordance with the 2-midnight benchmark. Estimated LOS (days): 3 days is the estimated time the patient will need to remain in the hospital, assuming treatment plan goals are met and no additional complications. Post-Hospital Plan: Not yet determined Floyd Garg MD Feb 07, 2017 13:59
[2017-02-07] MEDS ORDERED: SENNOSIDES 8.6 MG TAB PO PRN (14:00)
[2017-02-07] MEDS ORDERED: ACETAMINOPHEN 325 MG TAB PO PRN (14:00)
[2017-02-07] MEDS ORDERED: NALOXONE HCL 0.4 MG/ML AMP IV PRN (14:00)
[2017-02-07] MEDS ORDERED: MAGNESIUM HYDROXIDE SUSP 30 ML CUP PO PRN (14:00)
[2017-02-07] MEDS ORDERED: BISACODYL 10 MG SUPP RECTAL PRN (14:00)
[2017-02-07] MEDS ORDERED: ONDANSETRON HCL 4 MG/2 ML VIAL IVP PRN (14:00)
[2017-02-07] MEDS ORDERED: SODIUM CHLORIDE 0.9% FLUSH 10 ML FLUSH IV FLUSH PRN (14:00)
[2017-02-07] MEDS: RESP: BUDESONIDE 0.5 MG/2 ML NEB NEB SCH ×2 (14:00→20:00)
[2017-02-07] MEDS ORDERED: LACTULOSE SYRUP 20 GM/30 ML CUP PO PRN (14:00)
[2017-02-07] MEDS ORDERED: DEXTROMETHORPHAN PO (14:15)
[2017-02-07] MEDS ORDERED: GUAIFENESIN PO (14:15)
[2017-02-07] MEDS: SODIUM CHLOR 0.9% 1000 ML INJ 1,000 ML IV SCH (14:31)
[2017-02-07] MEDS: ENOXAPARIN SODIUM 40 MG/0.4 ML SYRINGE SQ SCH (14:33)
[2017-02-07] MEDS: RESP: ALBUTEROL 2.5 MG/IPRATROPIUM 0.5 MG NEB (SCH) NEB ×2 (15:16→21:20)
[2017-02-07] MEDS ORDERED: AZITHROMYCIN INJ 500 MG in SODIUM CHLOR 0.9% 250 ML INJ 250 ML IV SCH (16:00)
[2017-02-07] MEDS: methylPREDNISolone SOD SUCC 40 MG/1 ML VIAL IV PUSH SCH ×2 (17:28→23:05)
--- NOTE | 2017-02-07 18:52 | EKG ---
Date Performed: 02/07/2017 Time Performed: 12:19:56 PTAGE: 66 years EKG: Sinus rhythm WITH OCCASIONAL SUPRAVENTRICULAR PREMATURE COMPLEXES ABNORMAL ECG PREVIOUS TRACING : 11/16/2016 20.46 No significant change from previous tracing noted. DOCTOR: Jonatan Mar Interpretating Date/Time 02/07/2017 18:51:38
[2017-02-07 19:08] LABS: CREATINE KINASE 111 U/L (39-308)
[2017-02-07] MEDS: DOCUSATE SODIUM 50 MG/SENNA 8.6 MG TAB PO SCH (20:52)
[2017-02-07] MEDS: guaiFENesin E.R. 600 MG TAB PO SCH (20:52)
[2017-02-07] MEDS: SODIUM CHLORIDE 0.9% FLUSH 10 ML FLUSH IV FLUSH SCH (20:55)
[2017-02-07] MEDS ORDERED: ATORVASTATIN 80 MG TAB PO SCH (21:00)
[2017-02-07] MEDS ORDERED: cloNIDine HCL 0.1 MG TAB PO ONE (23:00)
[2017-02-08] VITALS (7 sets, daily range): BP systolic 133–184; BP diastolic 67–96; PULSE 77–86; RESP 18–24; TEMP 96.4–98.6; O2SAT 94–95
[2017-02-08] MEDS: RESP: ALBUTEROL 2.5 MG/IPRATROPIUM 0.5 MG NEB (SCH) NEB ×5 (00:28→15:59)
[2017-02-08] MEDS: methylPREDNISolone SOD SUCC 40 MG/1 ML VIAL IV PUSH SCH (04:42)
[2017-02-08] MEDS: SODIUM CHLOR 0.9% 1000 ML INJ 1,000 ML IV SCH (04:42)
[2017-02-08 05:30] LABS: AUTOMATED NEUTROPHIL # 9.1 TH/MM3 (1.8-7.7); BASOPHIL % 0.5 % (0.0-2.0); HEMATOCRIT 41.4 % (39.0-51.0); HEMO FLAGS DIFF FINAL; LYMPH % 5.3 % (9.0-44.0); LYMPHOCYTE # 0.5 TH/MM3 (1.0-4.8); MEAN CELL VOLUME 90.6 FL (80.0-100.0); MEAN CORPUSCULAR HEMOGLOBIN 31.1 PG (27.0-34.0); MEAN CORPUSCULAR HGB CONC 34.4 % (32.0-36.0); MONO % 3.1 % (0.0-8.0); NEUT % 91.1 % (16.0-70.0); PLATELET COUNT 199 TH/MM3 (150-450); RED BLOOD COUNT 4.57 MIL/MM3 (4.50-5.90); RED CELL DISTRIBUTION WIDTH 13.1 % (11.6-17.2)
[2017-02-08 05:55] LABS: BICARBONATE 28.1 MEQ/L (21.0-32.0); POTASSIUM 3.8 MEQ/L (3.5-5.1)
[2017-02-08] MEDS: RESP: BUDESONIDE 0.5 MG/2 ML NEB NEB SCH (08:00)
[2017-02-08] MEDS: guaiFENesin E.R. 600 MG TAB PO SCH (08:08)
[2017-02-08] MEDS: SODIUM CHLORIDE 0.9% FLUSH 10 ML FLUSH IV FLUSH SCH (08:09)
[2017-02-08] MEDS: DOCUSATE SODIUM 50 MG/SENNA 8.6 MG TAB PO SCH (08:09)
--- NOTE | 2017-02-08 08:42 | HHI.PR ---
Subjective Remarks This is a pleasant 66 y/o male who came to ER with Shortness of breath, brought in by EMS, Patient states that he's had cold-like symptoms for the past week. Per patient his was recently diagnosed with the flu but he tells me that she was put on azithromycin as well as prednisone. He was given the same. He states that he uses inhalers and nebulizers at home with minimal relief. He does use oxygen at home when needed. He has a history of COPD. Per patient this feels similar to his COPD. No chest pain. Shortness of breath with exertion as well as with sitting. Per patient the symptoms started getting worse yesterday when he was not able to get his shortness of breath under control. Per patient he uses inhalers as well as nebulizers with minimal relief. He tells me he almost done with azithromycin. He states that he has productive cough. No history of heart problems. Takes a blood thinner but does not know why. he has COPD, chronic bronchitis, PTSD, GERD, Hypertension, Hyperlipidemia, Anxiety, Depression, his oxygen saturation in the mid 80s today, his Primary Care Physician has given him multiple managements with Steroids and antibiotics and had recent admission in this facility in November this year. due to the same condition of COPD exacerbation received Levofloxacin and Steroids. Seen in Emergency room he has been coughing and get flushed face due to forceful effort to cough, productive one, but clear sputum production, Expiratory wheezing noticeable even without auscultation. I agree with full admission. 02/08: Stable in his bedroom, states if feeling better and wants to go home, encourage to get activity and will follow during the day to re evaluate his present status no nausea vomit or diarrhea, continue present care and follow for discharge, Steroids titrated down. Objective Vital Signs Date Time Temp Pulse Resp B/P Pulse Ox O2 Delivery O2 Flow Rate FiO2 02/08/17 08:00 98.6 79 18 162/77 95 02/08/17 04:24 164/82 02/08/17 04:00 96.4 77 22 176/85 95 02/08/17 00:00 97.7 86 24 184/96 94 02/07/17 22:37 178/85 02/07/17 21:24 93 Nasal Cannula 2.00 02/07/17 20:00 97.1 107 24 179/84 94 02/07/17 20:00 104 02/07/17 16:00 96.0 105 19 156/82 94 02/07/17 15:47 109 30 156/70 96 Nasal Cannula 02/07/17 14:24 105 41 144/73 96 Nasal Cannula 2 02/07/17 13:21 88 Room Air 02/07/17 12:31 95 Nasal Cannula 2.00 02/07/17 12:02 98.0 91 22 164/84 94 Nasal Cannula 2 02/07/17 12:00 92 Nasal Cannula 2 02/07/17 12:00 93 Nasal Cannula 2 02/07/17 11:57 98.0 90 26 164/84 97 I/O 02/07/17 02/07/17 02/07/17 02/08/17 02/08/17 02/08/17 07:00 15:00 23:00 07:00 15:00 23:00 Intake Total 1144 ml 950 ml 120 ml Balance 1144 ml 950 ml 120 ml Intake Oral 480 ml 320 ml 120 ml IV Total 664 ml 630 ml # Voids 2 2 # Bowel Movements 0 0 Result Diagram: 02/08/17 0447 02/08/17 044 Imaging Last Impressions Chest X-Ray 02/07/17 1157 Signed Impressions: Service Date/Time: Tuesday, February 07, 2017 11:58 - CONCLUSION: No acute cardiopulmonary disease. Concepcion Boo MD Procedures None Other Results Laboratory Tests Test 02/08/17 02/08/17 01:11 04:47 Total Creatine Kinase 126 U/L Troponin I 0.02 NG/ML White Blood Count 10.0 TH/MM3 Red Blood Count 4.57 MIL/MM3 Hemoglobin 14.2 GM/DL Hematocrit 41.4 % Mean Corpuscular Volume 90.6 FL Mean Corpuscular Hemoglobin 31.1 PG Mean Corpuscular Hemoglobin 34.4 % Concent Red Cell Distribution Width 13.1 % Platelet Count 199 TH/MM3 Mean Platelet Volume 9.5 FL Neutrophils (%) (Auto) 91.1 % Lymphocytes (%) (Auto) 5.3 % Monocytes (%) (Auto) 3.1 % Eosinophils (%) (Auto) 0.0 % Basophils (%) (Auto) 0.5 % Neutrophils # (Auto) 9.1 TH/MM3 Lymphocytes # (Auto) 0.5 TH/MM3 Monocytes # (Auto) 0.3 TH/MM3 Eosinophils # (Auto) 0.0 TH/MM3 Basophils # (Auto) 0.0 TH/MM3 CBC Comment DIFF FINAL Differential Comment Sodium Level 138 MEQ/L Potassium Level 3.8 MEQ/L Chloride Level 102 MEQ/L Carbon Dioxide Level 28.1 MEQ/L Anion Gap 8 MEQ/L Blood Urea Nitrogen 21 MG/DL Creatinine 1.05 MG/DL Estimat Glomerular Filtration 70 ML/MIN Rate Random Glucose 162 MG/DL Calcium Level 9.0 MG/DL Objective Remarks GENERAL: Well-developed patient, in Moderate Respiratory distress specially when coughing. SKIN: No rashes, ecchymoses or lesions. Cool and dry. HEAD: Atraumatic. Normocephalic. No temporal or scalp tenderness. EYES: Pupils equal round and reactive. Extraocular motions intact. No scleral icterus. No injection or drainage. ENT: Nose without bleeding, purulent drainage or septal hematoma. Throat without erythema, tonsillar hypertrophy or exudate. Uvula midline. Airway patent. NECK: Trachea midline. No JVD or lymphadenopathy. Supple, nontender, no meningeal signs. CARDIOVASCULAR: Regular rate and rhythm without murmurs, gallops, or rubs. RESPIRATORY: Decreased breath sounds bilateral, Improved expiratory wheezing from admission. GASTROINTESTINAL: Abdomen soft, non-tender, nondistended. No hepato-splenomegaly , or palpable masses. No guarding. MUSCULOSKELETAL: Extremities without clubbing, cyanosis, or edema. No joint tenderness, effusion, or edema noted. No calf tenderness. Negative Homans sign bilaterally. NEUROLOGICAL: Awake and alert. Cranial nerves II through XII intact. Motor and sensory grossly within normal limits. Five out of 5 muscle strength in all muscle groups. Normal speech. Medications and IVs Current Medications Medications (Trade) Dose Ordered Sig/Paul Route Start Time Stop Time Status Last Admin (Ecotrin Ec) 81 mg DAILY PO 02/08/17 09:00 02/08/17 08:08 (Lipitor) 80 mg HS PO 02/07/17 21:00 02/07/17 20:52 (Hydrodiuril) 25 mg DAILY PO 02/08/17 09:00 02/08/17 08:08 (Prinivil) 10 mg DAILY PO 02/08/17 09:00 02/08/17 08:08 Patient Own Medication PT OWN MED: MUCINEX... BID PRN PO 02/07/17 14:15 Hold (NS 1000 ml Inj) 1,000 ml @ 83 mls/hr Q12H3M IV 02/07/17 14:00 02/08/17 04:42 (NS Flush) 2 ml UNSCH PRN IV FLUSH 02/07/17 14:00 (NS Flush) 2 ml BID IV FLUSH 02/07/17 21:00 02/07/17 20:55 (Tylenol) 650 mg Q4H PRN PO 02/07/17 14:00 (Zofran Inj) 4 mg Q6H PRN IVP 02/07/17 14:00 (Narcan Inj) 0.4 mg UNSCH PRN IV 02/07/17 14:00 (Cris-Colace) 1 tab BID PO 02/07/17 21:00 02/07/17 20:52 (Milk Of Magnesia Liq) 30 ml Q12H PRN PO 02/07/17 14:00 (Senokot) 17.2 mg Q12H PRN PO 02/07/17 14:00 (Dulcolax Supp) 10 mg DAILY PRN RECTAL 02/07/17 14:00 (Lactulose Liq) 30 ml DAILY PRN PO 02/07/17 14:00 (Lovenox Inj) 40 mg Q24H SQ 02/07/17 14:00 02/07/17 14:33 (Mucinex Er) 600 mg BID PO 02/07/17 21:00 02/08/17 08:08 Methylprednisolone Sodium Succinate 40 mg 40 mg Q6HR IV PUSH 02/07/17 18:00 02/08/17 04:42 (Zithromax Inj/ NS 250 ml Inj) 250 ml @ 250 mls/hr Q24H IV 02/07/17 16:00 02/07/17 16:05 A/P Assessment and Plan 1. COPD exacerbation after Flu symptomatology, admitted for management with Bronchodilator, Mucolytic, Incentive spirometry antibiotics, Steroids. Oxygen as needed to keep Oxygen saturation over 92%, Steroids titrated down, continue present care follow during the day for probable discharge if continue stable, 2. OA by history 3. Anxiety Disorder/Depression continue Home medicines 4. CAD by history will continue Home medicines 5. Hyperlipidemia continue Atorvastatin 6. PTSD by history 7. Hyperglycemia secondary to Steroid use. 8. Hypertension uncontrolled continue present care and follow discontinued IV fluids. DVT prophylaxis with Lovenox. GI prophylaxis not needed at this time unless symptomatic. Code Status Full Code. Discussed Condition With Discharge Planning Expected later today or in am tomorrow Floyd Garg MD Feb 08, 2017 08:41
[2017-02-08] MEDS ORDERED: LISINOPRIL 10 MG TAB PO SCH (09:00)
[2017-02-08] MEDS ORDERED: HYDROCHLOROTHIAZIDE 25 MG TAB PO SCH (09:00)
[2017-02-08] MEDS ORDERED: ASPIRIN EC 81 MG TABEC PO SCH (09:00)
[2017-02-08] MEDS: ENOXAPARIN SODIUM 40 MG/0.4 ML SYRINGE SQ SCH (13:47)
[2017-02-08] MEDS ORDERED: methylPREDNISolone SOD SUCC 40 MG/1 ML VIAL IV PUSH SCH (14:00)
[2017-02-08] MEDS ORDERED: cloNIDine HCL 0.1 MG TAB PO ONE (15:30)
[2017-02-08] MEDS ORDERED: cloNIDine HCL 0.1 MG TAB PO PRN (15:30)
[2017-02-08] MEDS ORDERED: LISI-515 PO (16:32)
[2017-02-08] MEDS ORDERED: PRED10 PO (16:32)
[2017-02-08] MEDS ORDERED: AMLO5TAB2 PO (16:32)
[2017-02-08] MEDS ORDERED: AZIT500T2 PO (16:32)
--- NOTE | 2017-02-08 16:34 | HHI.DS ---
Discharge Summary Admission Date Feb 07, 2017 at 13:43 Discharge Date: Feb 08, 2017 Admitting Diagnosis COPD exacerbation (1) COPD exacerbation ICD Code: J44.1 Diagnosis: Principal (2) Hypertensive urgency ICD Code: I16.0 Diagnosis: Principal Procedures None Brief History - From Admission This is a pleasant 66 y/o male who came to ER with Shortness of breath, brought in by EMS, Patient states that he's had cold-like symptoms for the past week. Per patient his was recently diagnosed with the flu but he tells me that she was put on azithromycin as well as prednisone. He was given the same. He states that he uses inhalers and nebulizers at home with minimal relief. He does use oxygen at home when needed. He has a history of COPD. Per patient this feels similar to his COPD. No chest pain. Shortness of breath with exertion as well as with sitting. Per patient the symptoms started getting worse yesterday when he was not able to get his shortness of breath under control. Per patient he uses inhalers as well as nebulizers with minimal relief. He tells me he almost done with azithromycin. He states that he has productive cough. No history of heart problems. Takes a blood thinner but does not know why. he has COPD, chronic bronchitis, PTSD, GERD, Hypertension, Hyperlipidemia, Anxiety, Depression, his oxygen saturation in the mid 80s today, his Primary Care Physician has given him multiple managements with Steroids and antibiotics and had recent admission in this facility in November this year. due to the same condition of COPD exacerbation received Levofloxacin and Steroids. Seen in Emergency room he has been coughing and get flushed face due to forceful effort to cough, productive one, but clear sputum production, Expiratory wheezing noticeable even without auscultation. I agree with full admission. CBC/BMP: 02/08/17 0447 02/08/17 0447 Significant Findings Laboratory Tests Test 02/07/17 02/07/17 02/08/17 12:05 18:22 04:47 White Blood Count 12.6 TH/MM3 (4.0-11.0) Neutrophils (%) (Auto) 80.5 % 91.1 % (16.0-70.0) (16.0-70.0) Lymphocytes (%) (Auto) 8.9 % 5.3 % (9.0-44.0) (9.0-44.0) Monocytes (%) (Auto) 9.9 % (0.0-8.0) Neutrophils # (Auto) 10.1 TH/MM3 9.1 TH/MM3 (1.8-7.7) (1.8-7.7) Monocytes # (Auto) 1.2 TH/MM3 (0-0.9) Estimat Glomerular Filtration 72 ML/MIN (>89) 70 ML/MIN (>89) Rate Troponin I LESS THAN 0.02 NG/ML (0.02-0.05) Lymphocytes # (Auto) 0.5 TH/MM3 (1.0-4.8) Blood Urea Nitrogen 21 MG/DL (7-18) Random Glucose 162 MG/DL (74-106) Imaging Last Impressions Chest X-Ray 02/07/17 1157 Signed Impressions: Service Date/Time: Tuesday, February 07, 2017 11:58 - CONCLUSION: No acute cardiopulmonary disease. Concepcion Boo MD PE at Discharge GENERAL: Well-developed patient, in Moderate Respiratory distress specially when coughing. SKIN: No rashes, ecchymoses or lesions. Cool and dry. HEAD: Atraumatic. Normocephalic. No temporal or scalp tenderness. EYES: Pupils equal round and reactive. Extraocular motions intact. No scleral icterus. No injection or drainage. ENT: Nose without bleeding, purulent drainage or septal hematoma. Throat without erythema, tonsillar hypertrophy or exudate. Uvula midline. Airway patent. NECK: Trachea midline. No JVD or lymphadenopathy. Supple, nontender, no meningeal signs. CARDIOVASCULAR: Regular rate and rhythm without murmurs, gallops, or rubs. RESPIRATORY: Decreased breath sounds bilateral, Improved expiratory wheezing from admission. GASTROINTESTINAL: Abdomen soft, non-tender, nondistended. No hepato-splenomegaly , or palpable masses. No guarding. MUSCULOSKELETAL: Extremities without clubbing, cyanosis, or edema. No joint tenderness, effusion, or edema noted. No calf tenderness. Negative Homans sign bilaterally. NEUROLOGICAL: Awake and alert. Cranial nerves II through XII intact. Motor and sensory grossly within normal limits. Five out of 5 muscle strength in all muscle groups. Normal speech. Hospital Course This is a pleasant 66 y/o male who came to ER with Shortness of breath, brought in by EMS, Patient states that he's had cold-like symptoms for the past week. Per patient his was recently diagnosed with the flu but he tells me that she was put on azithromycin as well as prednisone. He was given the same. He states that he uses inhalers and nebulizers at home with minimal relief. He does use oxygen at home when needed. He has a history of COPD. Per patient this feels similar to his COPD. No chest pain. Shortness of breath with exertion as well as with sitting. Per patient the symptoms started getting worse yesterday when he was not able to get his shortness of breath under control. Per patient he uses inhalers as well as nebulizers with minimal relief. He tells me he almost done with azithromycin. He states that he has productive cough. No history of heart problems. Takes a blood thinner but does not know why. he has COPD, chronic bronchitis, PTSD, GERD, Hypertension, Hyperlipidemia, Anxiety, Depression, his oxygen saturation in the mid 80s today, his Primary Care Physician has given him multiple managements with Steroids and antibiotics and had recent admission in this facility in November this year. due to the same condition of COPD exacerbation received Levofloxacin and Steroids. Seen in Emergency room he has been coughing and get flushed face due to forceful effort to cough, productive one, but clear sputum production, Expiratory wheezing noticeable even without auscultation. I agree with full admission. 02/08: Stable in his bedroom, states if feeling better and wants to go home, encourage to get activity and will follow during the day to re evaluate his present status no nausea vomit or diarrhea, continue present care and follow for discharge, Steroids titrated down. Assessment and Plan 1. COPD exacerbation after Flu symptomatology, admitted for management with Bronchodilator, Mucolytic, Incentive spirometry antibiotics, Steroids. Oxygen as needed to keep Oxygen saturation over 92%, Steroids titrated down, continue present care follow during the day for probable discharge if continue stable, will continue Home medicines and Azithromycin for five days Prednisone titrated dosages to continue and follow with PCP in 2 days. 2. OA by history 3. Anxiety Disorder/Depression continue Home medicines 4. CAD by history will continue Home medicines 5. Hyperlipidemia continue Atorvastatin 6. PTSD by history 7. Hyperglycemia secondary to Steroid use. 8. Hypertension uncontrolled continue present care and follow discontinued IV fluids. at this time better will add Lisinopril increased to 20 mg daily and Amlodipine 5 mg daily. DVT prophylaxis with Lovenox. GI prophylaxis not needed at this time unless symptomatic. Code Status Full Code. Discussed Condition With patient and nurse , all questions answered to the best of my abilities. Discharge Planning Discharge Home today. Pt Condition on Discharge: Good Discharge Disposition: Discharge Home Discharge Time: <= 30 minutes Discharge Instructions DIET: Follow Instructions for: Heart Healthy Diet Activities you can perform: Regular-No Restrictions Floyd Garg MD Feb 08, 2017 16:34
== END 2017-02-08 17:04 | disposition home or self-care (01) | DRG 192 ==
LOC: NEPC 11:44 → UNDOADMOB 13:43 → NEDA 13:43 → OBSVTOIN 13:51 → NEDA 13:51 → N07B 16:30 → NEDA 16:30 → UNDODISOB 02-08 17:04
PROVIDERS: ADMIT Internal Medicine; ATTEND Internal Medicine
DX: J44.1 Chronic obstructive pulmonary disease with (acute) exacerbation (principal); Z99.81 Dependence on supplemental oxygen; I10 Essential (primary) hypertension; E78.5 Hyperlipidemia, unspecified; F43.10 Post-traumatic stress disorder, unspecified; I16.0 Hypertensive urgency; F32.9 Major depressive disorder, single episode, unspecified; K21.9 Gastro-esophageal reflux disease without esophagitis; I25.10 Atherosclerotic heart disease of native coronary artery without angina pectoris; M19.90 Unspecified osteoarthritis, unspecified site; F41.9 Anxiety disorder, unspecified; R73.9 Hyperglycemia, unspecified; T38.0X5A Adverse effect of glucocorticoids and synthetic analogues, initial encounter; Z87.891 Personal history of nicotine dependence; Z88.1 Allergy status to other antibiotic agents
CPT/HCPCS: 71010; 80048; 82550; 82948; 84484; 85025; 93005; 94150; 94640; 94664; 96374; J0456; J1650; J2920; J2930; J7030; J7050